=== PATIENT | male | born 1975 | race Hispanic/Latino ===

== ENCOUNTER 2022-08-08 14:05 | Inpatient (IN) | payer OTHER ==
[~2022-08-08] VITALS: Ht 162.6 cm; Wt 49.4 kg
[2022-08-08] VITALS (7 sets, daily range): BP systolic 126–167; BP diastolic 74–92
[2022-08-08] MEDS ORDERED: LIDOCAINE HCL 1% 20 ML VIAL ONE (14:13)
[2022-08-08] MEDS ORDERED: MIDAZOLAM HCL 1 MG/ML 2ML VIAL ONE (14:14)
[2022-08-08] MEDS ORDERED: NITROGLYCERIN 50MG VIAL ONE (14:14)
[2022-08-08] MEDS ORDERED: IOHEXOL 350 MG/ML 100ML INFUS..BTL IV ONE (14:14)
[2022-08-08] MEDS ORDERED: FENTANYL CITRATE PF 50 MCG/1 ML 2ML VIAL ONE (14:14)
[2022-08-08] MEDS ORDERED: VERAPAMIL HCL 2.5 MG/ML VIAL ONE (14:17)
[2022-08-08] MEDS ORDERED: HEPARIN 10,000 UNIT/10ML (1,000 UNIT/ML) VIAL ONE (14:19)
[2022-08-08] MEDS ORDERED: DEXTROSE 50%-WATER 50 ML DISP.SYRIN IV PRN (16:00)
[2022-08-08] MEDS ORDERED: GLUCAGON 1MG KIT 1 MG ML IM PRN (16:00)
[2022-08-08] MEDS ORDERED: ZOLPIDEM TARTRATE 5 MG TAB PO PRN (16:30)
[2022-08-08] MEDS ORDERED: DiphenhydrAMINE HCL 50 MG/ML VIAL IV PRN (16:30)
[2022-08-08] MEDS ORDERED: NITROGLYCERIN 0.4 MG SL TAB SL PRN (16:30)
[2022-08-08] MEDS ORDERED: LACTULOSE 20 GM/30 ML UDCUP PO PRN (16:30)
[2022-08-08] MEDS ORDERED: ACETAMINOPHEN 325 MG TAB PO PRN ×2 (16:30)
[2022-08-08] MEDS ORDERED: HEPARIN 5,000 UNIT VIAL SQ SCH (21:00)
[2022-08-08] MEDS ORDERED: HEPARIN 5,000 UNIT VIAL ONE (22:49)
[2022-08-08] MEDS: ACETAMINOPHEN WITH CODEINE 1 TAB TAB PO PRN (23:53)
[2022-08-09] VITALS (21 sets, daily range): BP systolic 132–181; BP diastolic 64–89
[2022-08-09] MEDS ORDERED: MORPHINE 2 MG SYG IVP PRN
[2022-08-09 05:42] LABS: BASOPHILS % (AUTO) 0.6 % (0.0-5.0); EOSINOPHILS % (AUTO) 3.6 % (0.0-8.0); HEMATOCRIT 23.9 % (42-54); LYMPHOCYTES % (AUTO) 28.7 % (21.0-51.0); MEAN CORPUSCULAR HEMOGLOBIN 28.2 pg (27.0-33.0); MEAN CORPUSCULAR HGB CONC 33.5 g/dL (32.0-36.0); MEAN CORPUSCULAR VOLUME 84.2 fL (79-99); MONOCYTES % (AUTO) 10.2 % (3.0-13.0); NEUTROPHILS % (AUTO) 56.7 % (40.0-77.0); PLATELET COUNT (AUTO) 213 K/uL (130-400); RED BLOOD CELL COUNT(AUTO) 2.84 MIL/uL (4.50-6.20); RED CELL DISTRIBUTION WIDTH 13.7 % (11.0-15.5); WHITE BLOOD COUNT (AUTO) 6.2 K/uL (4.8-10.8)
[2022-08-09 05:48] LABS: CREATININE 5.7 mg/dL (0.5-1.5); POTASSIUM 3.8 mmol/L (3.5-5.1); TOTAL PROTEIN, SERUM 6.1 g/dL (6.0-8.3)
[2022-08-09] MEDS: FAMOTIDINE 20MG VIAL IV SCH ×3 (09:36→21:00)
[2022-08-09] MEDS: ACETAMINOPHEN WITH CODEINE 1 TAB TAB PO PRN ×2 (09:46→16:28)
[2022-08-09] MEDS ORDERED: EPOETIN ALFA-EPBX (NON-ESRD) 10,000 UNIT/ML VIAL SQ SCH (14:00)
[2022-08-09] MEDS ORDERED: 0.9%NACL 1000ML 1,000 ML IV ONE (16:10)
[2022-08-09] MEDS: HEPARIN 25,000 UNITS/250ML D5W 250 ML IV SCH (16:22)
[2022-08-09] MEDS: HEPARIN 5,000 UNIT VIAL IJ SCH (20:05)
[2022-08-09] MEDS: ONDANSETRON 4MG INJ IV PRN (23:26)
[2022-08-10 00:12] VITALS: BP 174/81
[2022-08-10 02:53] LABS: HEPATITIS B SURFACE ANTIGEN Non-Reactive (Nonreactive)
[2022-08-10 03:53] LABS: BASOPHILS % (AUTO) 0.5 % (0.0-5.0); HEMATOCRIT 25.9 % (42-54); LYMPHOCYTES % (AUTO) 20.6 % (21.0-51.0); MEAN CORPUSCULAR HEMOGLOBIN 28.3 pg (27.0-33.0); MEAN CORPUSCULAR VOLUME 83.3 fL (79-99); MONOCYTES % (AUTO) 6.4 % (3.0-13.0); NEUTROPHILS % (AUTO) 71.2 % (40.0-77.0); PLATELET COUNT (AUTO) 223 K/uL (130-400); RED BLOOD CELL COUNT(AUTO) 3.11 MIL/uL (4.50-6.20); RED CELL DISTRIBUTION WIDTH 13.4 % (11.0-15.5)
[2022-08-10 04:00] VITALS: BP 148/66
[2022-08-10 04:16] LABS: ABG BASE EXCESS 0.8 mmol/L (-2.0-3.0); ABG HCO3 25.4 mmol/L (21.0-28.0); ABG OXYGEN SATURATION 96.6 % (95.0-99.0); ABG PCO2 40 mmHg (35-48)
[2022-08-10 04:17] LABS: CREATININE 4.4 mg/dL (0.5-1.5); PHOSPHORUS 4.8 mg/dL (2.5-4.9)
[2022-08-10] MEDS ORDERED: ASPIRIN 81 MG EC TAB PO SCH (08:00)
[2022-08-10] MEDS: FAMOTIDINE 20MG VIAL IV SCH ×2 (08:18→21:19)
[2022-08-10] MEDS: ACETAMINOPHEN WITH CODEINE 1 TAB TAB PO PRN (08:18)
[2022-08-10 08:23] LABS: CHOLESTEROL 185 mg/dL (<200); HDL CHOLESTEROL 56 mg/dL (29-71); LDL DIRECT 107 mg/dL (0-99); TRIGLYCERIDES 117 mg/dL (30-200)
[2022-08-10 08:41] VITALS: BP 138/74
[2022-08-10] MEDS ORDERED: METOPROLOL TARTRATE 25 MG TAB PO SCH (09:00)
[2022-08-10 12:30] VITALS: BP 150/81
[2022-08-10] MEDS: METOPROLOL TARTRATE 25 MG TAB PO SCH ×2 (15:31→21:19)
[2022-08-10] MEDS: ASPIRIN 81 MG EC TAB PO SCH (15:31)
[2022-08-10 16:08] VITALS: BP 152/78
[2022-08-10 20:06] VITALS: BP 172/78
[2022-08-10] MEDS ORDERED: ATORVASTATIN 20 MG TABLET PO SCH (21:00)
[2022-08-10] MEDS: ONDANSETRON 4MG INJ IV PRN (21:19)
[2022-08-10] MEDS: ATORVASTATIN 40 MG TABLET PO SCH (21:19)
[2022-08-10] MEDS: HEPARIN 25,000 UNITS/250ML D5W 250 ML IV SCH (22:26)
[2022-08-11] VITALS (20 sets, daily range): BP systolic 120–156; BP diastolic 69–89
[2022-08-11 04:44] LABS: HEMATOCRIT 23.6 % (42-54); MEAN CORPUSCULAR HEMOGLOBIN 28.8 pg (27.0-33.0); MEAN CORPUSCULAR HGB CONC 35.2 g/dL (32.0-36.0); MEAN CORPUSCULAR VOLUME 81.9 fL (79-99); RED BLOOD CELL COUNT(AUTO) 2.88 MIL/uL (4.50-6.20); RED CELL DISTRIBUTION WIDTH 13.2 % (11.0-15.5); WHITE BLOOD COUNT (AUTO) 5.4 K/uL (4.8-10.8)
[2022-08-11 05:20] LABS: CREATININE 7.2 mg/dL (0.5-1.5); POTASSIUM 3.9 mmol/L (3.5-5.1)
[2022-08-11] MEDS: METOPROLOL TARTRATE 25 MG TAB PO SCH ×2 (09:00→20:31)
[2022-08-11] MEDS: FAMOTIDINE 20MG VIAL IV SCH ×2 (10:09→20:31)
[2022-08-11] MEDS: ASPIRIN 81 MG EC TAB PO SCH (10:09)
[2022-08-11] MEDS: HEPARIN 5,000 UNIT VIAL IJ SCH (13:10)
[2022-08-11] MEDS: ACETAMINOPHEN WITH CODEINE 1 TAB TAB PO PRN ×2 (13:44→20:30)
[2022-08-11 17:02] LABS: INR 0.95 (0.85-1.15); PROTHROMBIN TIME 10.4 SEC (9.6-11.6)
[2022-08-11 17:04] LABS: PARTIAL THROMBOPLASTIN TIME 64.9 SEC (26.3-35.5)
[2022-08-11] MEDS: ATORVASTATIN 40 MG TABLET PO SCH (20:31)
[2022-08-11] MEDS: HEPARIN 25,000 UNITS/250ML D5W 250 ML IV SCH (22:12)
[2022-08-12] VITALS (7 sets, daily range): BP systolic 89–128; BP diastolic 57–78
[2022-08-12 03:26] LABS: HEMATOCRIT 26.2 % (42-54); MEAN CORPUSCULAR HEMOGLOBIN 28.1 pg (27.0-33.0); MEAN CORPUSCULAR VOLUME 82.6 fL (79-99); RED BLOOD CELL COUNT(AUTO) 3.17 MIL/uL (4.50-6.20); RED CELL DISTRIBUTION WIDTH 13.6 % (11.0-15.5); WHITE BLOOD COUNT (AUTO) 5.8 K/uL (4.8-10.8)
[2022-08-12 03:38] LABS: CREATININE 6.3 mg/dL (0.5-1.5); POTASSIUM 3.9 mmol/L (3.5-5.1)
[2022-08-12] MEDS: ONDANSETRON 4MG INJ IV PRN ×2 (04:38→20:14)
[2022-08-12] MEDS: METOPROLOL TARTRATE 25 MG TAB PO SCH ×3 (09:00→20:18)
[2022-08-12] MEDS: ASPIRIN 81 MG EC TAB PO SCH (09:53)
[2022-08-12] MEDS: FAMOTIDINE 20MG VIAL IV SCH ×2 (09:53→20:19)
[2022-08-12] MEDS: METOCLOPRAMIDE 5 MG TABLET PO SCH ×3 (11:30→20:18)
[2022-08-12] MEDS ORDERED: METOCLOPRAMIDE 5 MG TABLET ONE (11:36)
[2022-08-12] MEDS ORDERED: EPOETIN ALFA-EPBX (NON-ESRD) 10,000 UNIT/ML VIAL SQ SCH (14:00)
[2022-08-12] MEDS: ACETAMINOPHEN WITH CODEINE 1 TAB TAB PO PRN (20:17)
[2022-08-12] MEDS: ATORVASTATIN 40 MG TABLET PO SCH (20:17)
[2022-08-12] MEDS: HEPARIN 25,000 UNITS/250ML D5W 250 ML IV SCH (20:27)
[2022-08-12] MEDS ORDERED: HEPARIN 5,000 UNIT VIAL IV ONE (23:45)
[2022-08-13] MEDS: HEPARIN 25,000 UNITS/250ML D5W 250 ML IV SCH ×2 (00:23→21:17)
[2022-08-13 04:20] VITALS: BP 118/64
[2022-08-13 04:55] LABS: BASOPHILS % (AUTO) 0.5 % (0.0-5.0); EOSINOPHILS % (AUTO) 3.8 % (0.0-8.0); HEMATOCRIT 25.3 % (42-54); LYMPHOCYTES % (AUTO) 38.2 % (21.0-51.0); MEAN CORPUSCULAR HEMOGLOBIN 28.8 pg (27.0-33.0); MEAN CORPUSCULAR HGB CONC 34.8 g/dL (32.0-36.0); MEAN CORPUSCULAR VOLUME 82.7 fL (79-99); MONOCYTES % (AUTO) 11.5 % (3.0-13.0); NEUTROPHILS % (AUTO) 45.8 % (40.0-77.0); PLATELET COUNT (AUTO) 188 K/uL (130-400); RED BLOOD CELL COUNT(AUTO) 3.06 MIL/uL (4.50-6.20); RED CELL DISTRIBUTION WIDTH 13.6 % (11.0-15.5); WHITE BLOOD COUNT (AUTO) 5.8 K/uL (4.8-10.8)
[2022-08-13 05:14] LABS: ALBUMIN 3.3 g/dL (3.5-5.0); MAGNESIUM 2.2 mg/dL (1.80-2.40); POTASSIUM 3.9 mmol/L (3.5-5.1); TOTAL PROTEIN, SERUM 6.7 g/dL (6.0-8.3)
[2022-08-13 05:29] LABS: CREATININE 8.7 mg/dL (0.5-1.5)
[2022-08-13 07:08] VITALS: BP 132/78
[2022-08-13] MEDS: METOCLOPRAMIDE 5 MG TABLET PO SCH ×4 (07:18→21:10)
[2022-08-13] MEDS: FAMOTIDINE 20MG VIAL IV SCH ×2 (09:00→21:10)
[2022-08-13] MEDS: ASPIRIN 81 MG EC TAB PO SCH (09:00)
[2022-08-13] MEDS: METOPROLOL TARTRATE 25 MG TAB PO SCH ×2 (09:01→21:10)
[2022-08-13] MEDS: ONDANSETRON 4MG INJ IV PRN ×2 (09:47→19:03)
[2022-08-13 11:45] VITALS: BP 139/81
[2022-08-13 16:11] VITALS: BP 142/78
[2022-08-13] MEDS: ACETAMINOPHEN WITH CODEINE 1 TAB TAB PO PRN (16:26)
[2022-08-13 19:03] VITALS: BP 146/80
[2022-08-13 20:11] LABS: AMPHET/METH SCREEN,URINE NEGATIVE (NEGATIVE); BARBITURATE SCREEN, URINE NEGATIVE (NEGATIVE); BENZODIAZEPINES SCREEN,URINE NEGATIVE (NEGATIVE); CANNABINOID SCREEN,URINE NEGATIVE (NEGATIVE); COCAINE SCREEN,URINE NEGATIVE (NEGATIVE); OPIATE SCREEN,URINE POSITIVE (NEGATIVE); PHENCYCLIDINE SCREEN,URINE NEGATIVE (NEGATIVE)
[2022-08-13] MEDS: ATORVASTATIN 40 MG TABLET PO SCH (21:10)
[2022-08-14] VITALS (29 sets, daily range): BP systolic 32–202; BP diastolic 40–98
[2022-08-14] MEDS: METOCLOPRAMIDE 5 MG TABLET PO SCH ×2 (05:00→10:34)
[2022-08-14 05:21] LABS: MEAN CORPUSCULAR HEMOGLOBIN 28.5 pg (27.0-33.0); MEAN CORPUSCULAR HGB CONC 34.4 g/dL (32.0-36.0); MEAN CORPUSCULAR VOLUME 82.8 fL (79-99); RED BLOOD CELL COUNT(AUTO) 3.02 MIL/uL (4.50-6.20); RED CELL DISTRIBUTION WIDTH 13.7 % (11.0-15.5); WHITE BLOOD COUNT (AUTO) 6.8 K/uL (4.8-10.8)
[2022-08-14 05:34] LABS: HEMOGLOBIN A1C 7.3 % (4.0-6.0)
[2022-08-14 05:36] LABS: ALBUMIN 3.4 g/dL (3.5-5.0); INR 0.96 (0.85-1.15); POTASSIUM 4.2 mmol/L (3.5-5.1); PROTHROMBIN TIME 10.5 SEC (9.6-11.6); TOTAL PROTEIN, SERUM 6.9 g/dL (6.0-8.3)
[2022-08-14 05:38] LABS: PARTIAL THROMBOPLASTIN TIME 48.9 SEC (26.3-35.5)
[2022-08-14 05:47] LABS: CREATININE 9.8 mg/dL (0.5-1.5)
[2022-08-14] MEDS ORDERED: PAPAVERINE HCL 30 MG/ML 2ML VIAL ONE (07:02)
[2022-08-14] MEDS ORDERED: CEFAZOLIN SODIUM 1 GM VIAL ONE (07:02)
[2022-08-14] MEDS ORDERED: AMINOCAPROIC ACID 5,000MG VIAL 15,000 MG in 0.9% NACL 500ML IV.SOLN 420 ML IV PRN (08:00)
[2022-08-14] MEDS ORDERED: NOREPINEPHRINE BITARTRATE 8 MG in 0.9% NACL 250ML 250 ML IV PRN (08:00)
[2022-08-14] MEDS ORDERED: EPINEPHRINE PF 1MG (1:1,000) 10 MG in 0.9% NACL 250ML 240 ML IV PRN ×2 (08:00→15:30)
[2022-08-14] MEDS: ASPIRIN 81 MG EC TAB PO SCH (09:00)
[2022-08-14] MEDS ORDERED: EPOETIN ALFA-EPBX (NON-ESRD) 10,000 UNIT/ML VIAL SQ SCH (09:00)
[2022-08-14] MEDS: FAMOTIDINE 20MG VIAL IV SCH ×2 (09:00→20:40)
[2022-08-14] MEDS: METOPROLOL TARTRATE 25 MG TAB PO SCH (09:54)
[2022-08-14] MEDS: CEFAZOLIN SODIUM 1 GM VIAL IVP SCH ×2 (10:34→13:00)
[2022-08-14] MEDS ORDERED: 0.9% NACL 500ML IV.SOLN 0 ML IV ONE (10:37)
[2022-08-14] MEDS ORDERED: NITROGLYCERIN 50MG/D5W 250ML 1 BOT ONE (10:39)
[2022-08-14] MEDS ORDERED: 0.9%NACL 1000ML 1,000 ML IV ONE (10:40)
[2022-08-14] MEDS ORDERED: ROCURONIUM 10MG/1ML SYR 10 MG/ML ML ONE ×2 (12:09→13:20)
[2022-08-14] MEDS ORDERED: PROPOFOL 10 MG/ML 20ML VIAL IV ONE (12:09)
[2022-08-14] MEDS ORDERED: MIDAZOLAM HCL 1 MG/ML 5ML VIAL ONE (12:13)
[2022-08-14] MEDS ORDERED: FENTANYL CITRATE PF 50 MCG/1 ML 20ML VIAL IJ ONE (12:16)
[2022-08-14] MEDS ORDERED: HEPARIN 10,000 UNIT/10ML (1,000 UNIT/ML) VIAL ONE (13:27)
[2022-08-14 13:51] LABS: ABG BASE EXCESS -5.4 mmol/L (-2.0-3.0); ABG HCO3 19.3 mmol/L (21.0-28.0); ABG OXYGEN SATURATION 99.4 % (95.0-99.0); ABG PCO2 35 mmHg (35-48)
[2022-08-14] MEDS ORDERED: AMIODARONE 150MG VIAL ONE (13:51)
[2022-08-14 14:24] LABS: ABG BASE EXCESS 3.3 mmol/L (-2.0-3.0); ABG HCO3 25.8 mmol/L (21.0-28.0); ABG OXYGEN SATURATION 99.3 % (95.0-99.0); ABG PCO2 31 mmHg (35-48)
[2022-08-14 14:54] LABS: ABG BASE EXCESS 7.4 mmol/L (-2.0-3.0); ABG HCO3 29.9 mmol/L (21.0-28.0); ABG OXYGEN SATURATION 99.3 % (95.0-99.0); ABG PCO2 33 mmHg (35-48)
[2022-08-14] MEDS ORDERED: 0.9%NACL 10ML VIAL IVP PRN (15:30)
[2022-08-14] MEDS ORDERED: POTASSIUM PHOS 15 mMOL+NS250ML 250 ML IV PRN (15:30)
[2022-08-14] MEDS ORDERED: AMINOCAPROIC ACID 5,000MG VIAL 15,000 MG in 0.9% NACL 250ML 250 ML IV SCH (15:30)
[2022-08-14] MEDS ORDERED: MORPHINE 4 MG SYG IV PRN (15:30)
[2022-08-14] MEDS ORDERED: NOREPINEPHRIN 4MG/NS 250ML 250 ML IV PRN (15:30)
[2022-08-14] MEDS ORDERED: CALCIUM GLUC 1GM 1 GM in 0.9%NACL 50ML 50 ML IV PRN (15:30)
[2022-08-14] MEDS ORDERED: PROPOFOL 1000 MG/100 ML 100 ML IV PRN (15:30)
[2022-08-14] MEDS ORDERED: MORPHINE 2 MG SYG IV PRN (15:30)
[2022-08-14] MEDS ORDERED: 0.9%NACL 1000ML 1,000 ML IV SCH (15:30)
[2022-08-14] MEDS ORDERED: DEXTROSE 50%-WATER 50 ML DISP.SYRIN IV PRN (15:30)
[2022-08-14] MEDS ORDERED: INSULIN REGULAR, HUMAN 3ML 100 UNIT in 0.9%NACL 100ML 99 ML IV SCH ×2 (15:30)
[2022-08-14] MEDS ORDERED: ALBUMIN (HUMAN) 5% 250 ML IV PRN (15:30)
[2022-08-14] MEDS ORDERED: 0.9% NACL 500ML IV.SOLN 500 ML IV SCH (15:30)
[2022-08-14] MEDS ORDERED: HYDROCODONE/ACETAMINOPHEN 5/325 MG TAB PO PRN (15:30)
[2022-08-14] MEDS ORDERED: POTASSIUM CHLORIDE 20MEQ/100ML 100 ML IV PRN (15:30)
[2022-08-14] MEDS ORDERED: ACETAMINOPHEN 650 MG SUPPOSITORY RC PRN (15:30)
[2022-08-14] MEDS ORDERED: GLUCAGON 1MG KIT 1 MG ML IM PRN (15:30)
[2022-08-14] MEDS ORDERED: NITROGLYCERIN 50MG/D5W 250ML 250 BOT IV SCH (15:30)
[2022-08-14 15:45] LABS: ABG BASE EXCESS 0.8 mmol/L (-2.0-3.0); ABG HCO3 23.6 mmol/L (21.0-28.0); ABG OXYGEN SATURATION 99.2 % (95.0-99.0); ABG PCO2 29 mmHg (35-48)
[2022-08-14 16:18] LABS: ABG BASE EXCESS -0.3 mmol/L (-2.0-3.0); ABG OXYGEN SATURATION 98.7 % (95.0-99.0); ABG PCO2 31 mmHg (35-48)
[2022-08-14 16:22] LABS: MEAN CORPUSCULAR HEMOGLOBIN 28.6 pg (27.0-33.0); MEAN CORPUSCULAR HGB CONC 34.5 g/dL (32.0-36.0); MEAN CORPUSCULAR VOLUME 82.9 fL (79-99); RED BLOOD CELL COUNT(AUTO) 2.1 MIL/uL (4.50-6.20); RED CELL DISTRIBUTION WIDTH 13.6 % (11.0-15.5); WHITE BLOOD COUNT (AUTO) 13.1 K/uL (4.8-10.8)
[2022-08-14] MEDS: SODIUM BICARB 50MEQ 50ML VIAL IV PRN ×3 (16:35→19:31)
[2022-08-14 16:37] LABS: INR 1.14 (0.85-1.15); PROTHROMBIN TIME 12.3 SEC (9.6-11.6)
[2022-08-14 16:38] LABS: PARTIAL THROMBOPLASTIN TIME 21.9 SEC (26.3-35.5)
[2022-08-14 16:48] LABS: HEMATOCRIT 17.4 % (42-54)
[2022-08-14 16:49] LABS: MAGNESIUM 1.6 mg/dL (1.80-2.40); PHOSPHORUS 6.5 mg/dL (2.5-4.9); POTASSIUM 3.9 mmol/L (3.5-5.1)
[2022-08-14 16:53] LABS: CREATININE 8.4 mg/dL (0.5-1.5)
[2022-08-14] MEDS ORDERED: ASPIRIN 81MG CHEW TAB NG ONE (17:00)
[2022-08-14] MEDS: MAGNESIUM 2GM PREMIX 50ML 50 ML IV PRN (17:06)
[2022-08-14 17:14] LABS: ABG BASE EXCESS 1.5 mmol/L (-2.0-3.0); ABG HCO3 24.9 mmol/L (21.0-28.0); ABG OXYGEN SATURATION 98.7 % (95.0-99.0); ABG PCO2 34 mmHg (35-48)
[2022-08-14 18:30] LABS: ABG BASE EXCESS -1.8 mmol/L (-2.0-3.0); ABG HCO3 21.9 mmol/L (21.0-28.0); ABG OXYGEN SATURATION 98.5 % (95.0-99.0); ABG PCO2 33 mmHg (35-48)
[2022-08-14 19:26] LABS: ABG BASE EXCESS -0.7 mmol/L (-2.0-3.0); ABG HCO3 23.7 mmol/L (21.0-28.0); ABG OXYGEN SATURATION 98.6 % (95.0-99.0); ABG PCO2 38 mmHg (35-48)
[2022-08-14] MEDS ORDERED: TRAMADOL HCL 50 MG TABLET PO PRN (19:45)
[2022-08-14 20:33] LABS: ABG BASE EXCESS 0.6 mmol/L (-2.0-3.0); ABG HCO3 26.1 mmol/L (21.0-28.0); ABG OXYGEN SATURATION 98.4 % (95.0-99.0); ABG PCO2 47 mmHg (35-48)
[2022-08-14] MEDS: CEFAZOLIN SODIUM 1 GM VIAL IV SCH (20:40)
[2022-08-14 21:28] LABS: ABG BASE EXCESS 2.3 mmol/L (-2.0-3.0); ABG HCO3 26.2 mmol/L (21.0-28.0); ABG OXYGEN SATURATION 98.6 % (95.0-99.0); ABG PCO2 37 mmHg (35-48)
[2022-08-14 23:09] LABS: ABG BASE EXCESS 2.6 mmol/L (-2.0-3.0); ABG HCO3 27.4 mmol/L (21.0-28.0); ABG OXYGEN SATURATION 98.4 % (95.0-99.0); ABG PCO2 43 mmHg (35-48)
[2022-08-15] VITALS (69 sets, daily range): BP systolic 65–219; BP diastolic 29–73
[2022-08-15 00:25] LABS: ABG HCO3 25.6 mmol/L (21.0-28.0); ABG OXYGEN SATURATION 98.3 % (95.0-99.0); ABG PCO2 41 mmHg (35-48)
[2022-08-15 01:26] LABS: ABG BASE EXCESS 0.6 mmol/L (-2.0-3.0); ABG HCO3 24.5 mmol/L (21.0-28.0); ABG OXYGEN SATURATION 98.5 % (95.0-99.0); ABG PCO2 36 mmHg (35-48)
[2022-08-15 02:33] LABS: ABG BASE EXCESS 1.5 mmol/L (-2.0-3.0); ABG HCO3 26.2 mmol/L (21.0-28.0); ABG OXYGEN SATURATION 98.3 % (95.0-99.0); ABG PCO2 42 mmHg (35-48)
[2022-08-15 04:18] LABS: MEAN CORPUSCULAR HEMOGLOBIN 29.8 pg (27.0-33.0); MEAN CORPUSCULAR HGB CONC 34.8 g/dL (32.0-36.0); MEAN CORPUSCULAR VOLUME 85.8 fL (79-99); RED BLOOD CELL COUNT(AUTO) 2.18 MIL/uL (4.50-6.20); RED CELL DISTRIBUTION WIDTH 14.2 % (11.0-15.5); WHITE BLOOD COUNT (AUTO) 8.4 K/uL (4.8-10.8)
[2022-08-15 04:33] LABS: HEMATOCRIT 18.7 % (42-54)
[2022-08-15 04:37] LABS: MAGNESIUM 2.8 mg/dL (1.80-2.40); PHOSPHORUS 6.2 mg/dL (2.5-4.9); POTASSIUM 4.7 mmol/L (3.5-5.1)
[2022-08-15 04:43] LABS: ABG BASE EXCESS 0.2 mmol/L (-2.0-3.0); ABG HCO3 24.4 mmol/L (21.0-28.0); ABG OXYGEN SATURATION 97.8 % (95.0-99.0); ABG PCO2 37 mmHg (35-48)
[2022-08-15] MEDS: CEFAZOLIN SODIUM 1 GM VIAL IV SCH ×2 (04:48→12:18)
[2022-08-15 04:54] LABS: CREATININE 9.4 mg/dL (0.5-1.5)
[2022-08-15 04:56] LABS: INR 1.03 (0.85-1.15); PROTHROMBIN TIME 11.2 SEC (9.6-11.6)
[2022-08-15 04:57] LABS: PARTIAL THROMBOPLASTIN TIME 24.5 SEC (26.3-35.5)
[2022-08-15 05:54] LABS: MEAN CORPUSCULAR HEMOGLOBIN 29.5 pg (27.0-33.0); MEAN CORPUSCULAR HGB CONC 33.7 g/dL (32.0-36.0); MEAN CORPUSCULAR VOLUME 87.4 fL (79-99); RED BLOOD CELL COUNT(AUTO) 2.07 MIL/uL (4.50-6.20); RED CELL DISTRIBUTION WIDTH 14.3 % (11.0-15.5); WHITE BLOOD COUNT (AUTO) 8.5 K/uL (4.8-10.8)
[2022-08-15 05:58] LABS: HEMATOCRIT 18.1 % (42-54)
[2022-08-15] MEDS ORDERED: TRAMADOL HCL 50 MG TABLET ONE (07:44)
[2022-08-15] MEDS: FAMOTIDINE 20MG VIAL IV SCH ×2 (08:00→20:05)
[2022-08-15] MEDS: ASPIRIN 81MG CHEW TAB PO SCH (08:00)
[2022-08-15] MEDS ORDERED: EPOETIN ALFA-EPBX (NON-ESRD) 10,000 UNIT/ML VIAL SQ SCH (09:30)
[2022-08-15] MEDS: HYDROCODONE/ACETAMINOPHEN 7.5/325 MG TAB PO PRN ×2 (13:18→20:25)
[2022-08-15] MEDS: HEPARIN 5,000 UNIT VIAL IJ SCH (13:21)
[2022-08-15] MEDS: LISINOPRIL 10 MG TABLET PO SCH (15:21)
[2022-08-15 16:15] LABS: HEMATOCRIT 22.2 % (42-54); MEAN CORPUSCULAR HEMOGLOBIN 30.4 pg (27.0-33.0); MEAN CORPUSCULAR HGB CONC 35.1 g/dL (32.0-36.0); MEAN CORPUSCULAR VOLUME 86.4 fL (79-99); RED BLOOD CELL COUNT(AUTO) 2.57 MIL/uL (4.50-6.20); RED CELL DISTRIBUTION WIDTH 13.8 % (11.0-15.5); WHITE BLOOD COUNT (AUTO) 13.2 K/uL (4.8-10.8)
[2022-08-15] MEDS: ATORVASTATIN 40 MG TABLET PO SCH (20:05)
[2022-08-15] MEDS: METOPROLOL TARTRATE 25 MG TAB PO SCH (20:05)
[2022-08-15] MEDS ORDERED: HYDRALAZINE 20MG/ML VIAL IM SCH (21:30)
[2022-08-16] VITALS (33 sets, daily range): BP systolic 136–188; BP diastolic 56–87
[2022-08-16] MEDS: ACETAMINOPHEN 325 MG TAB PO PRN ×2 (01:03→10:05)
[2022-08-16 04:17] LABS: BASOPHILS % (AUTO) 0.2 % (0.0-5.0); HEMATOCRIT 22.6 % (42-54); LYMPHOCYTES % (AUTO) 4.4 % (21.0-51.0); MEAN CORPUSCULAR HEMOGLOBIN 29.5 pg (27.0-33.0); MEAN CORPUSCULAR HGB CONC 33.6 g/dL (32.0-36.0); MEAN CORPUSCULAR VOLUME 87.6 fL (79-99); MONOCYTES % (AUTO) 7.1 % (3.0-13.0); NEUTROPHILS % (AUTO) 87.8 % (40.0-77.0); PLATELET COUNT (AUTO) 139 K/uL (130-400); RED BLOOD CELL COUNT(AUTO) 2.58 MIL/uL (4.50-6.20); RED CELL DISTRIBUTION WIDTH 14.2 % (11.0-15.5); WHITE BLOOD COUNT (AUTO) 14.6 K/uL (4.8-10.8)
[2022-08-16 04:39] LABS: CREATININE 6.4 mg/dL (0.5-1.5); MAGNESIUM 2.2 mg/dL (1.80-2.40); PHOSPHORUS 6.7 mg/dL (2.5-4.9)
[2022-08-16] MEDS: ASPIRIN 81MG CHEW TAB PO SCH (08:53)
[2022-08-16] MEDS: FAMOTIDINE 20MG VIAL IV SCH ×2 (08:53→20:12)
[2022-08-16] MEDS: LISINOPRIL 10 MG TABLET PO SCH (08:53)
[2022-08-16] MEDS: METOPROLOL TARTRATE 25 MG TAB PO SCH ×2 (08:53→20:12)
[2022-08-16] MEDS: ENOXAPARIN SODIUM 30 MG/0.3 ML SQ SCH (08:54)
[2022-08-16] MEDS ORDERED: LOSARTAN 25 MG TABLET PO SCH (09:00)
[2022-08-16] MEDS: INSULIN HUMULIN R 100 UNIT/ML 3ML SQ SCH ×3 (11:18→19:54)
[2022-08-16] MEDS: HEPARIN 5,000 UNIT VIAL IV PRN (12:38)
[2022-08-16] MEDS ORDERED: TRAMADOL HCL 50 MG TABLET PO PRN ×2 (15:30)
[2022-08-16] MEDS: ATORVASTATIN 40 MG TABLET PO SCH (20:12)
[2022-08-17] VITALS: BP 144/73
[2022-08-17 03:51] LABS: MEAN CORPUSCULAR HEMOGLOBIN 30.2 pg (27.0-33.0); MEAN CORPUSCULAR HGB CONC 34.6 g/dL (32.0-36.0); MEAN CORPUSCULAR VOLUME 87.2 fL (79-99); RED BLOOD CELL COUNT(AUTO) 2.35 MIL/uL (4.50-6.20); WHITE BLOOD COUNT (AUTO) 12.8 K/uL (4.8-10.8)
[2022-08-17 03:53] LABS: HEMATOCRIT 20.5 % (42-54)
[2022-08-17 04:00] VITALS: BP 166/72
[2022-08-17 04:01] LABS: CREATININE 4.8 mg/dL (0.5-1.5)
[2022-08-17] MEDS: ACETAMINOPHEN 325 MG TAB PO PRN (06:12)
[2022-08-17] MEDS: INSULIN HUMULIN R 100 UNIT/ML 3ML SQ SCH ×4 (07:30→21:32)
[2022-08-17 08:30] VITALS: BP 151/76
[2022-08-17] MEDS: ASPIRIN 81MG CHEW TAB PO SCH (09:18)
[2022-08-17] MEDS: FAMOTIDINE 20MG VIAL IV SCH ×2 (09:18→20:04)
[2022-08-17] MEDS: METOPROLOL TARTRATE 25 MG TAB PO SCH ×2 (09:18→20:04)
[2022-08-17] MEDS: LOSARTAN 100 MG TABLET PO SCH (09:18)
[2022-08-17] MEDS: ENOXAPARIN SODIUM 30 MG/0.3 ML SQ SCH (09:19)
[2022-08-17 12:24] VITALS: BP 125/66
[2022-08-17 16:15] VITALS: BP 134/68
[2022-08-17 19:06] VITALS: BP 133/60
[2022-08-17] MEDS: ATORVASTATIN 40 MG TABLET PO SCH (20:04)
[2022-08-18] VITALS (19 sets, daily range): BP systolic 99–149; BP diastolic 55–84
[2022-08-18 04:37] LABS: HEMATOCRIT 21.3 % (42-54); MEAN CORPUSCULAR HEMOGLOBIN 29.6 pg (27.0-33.0); MEAN CORPUSCULAR HGB CONC 33.8 g/dL (32.0-36.0); MEAN CORPUSCULAR VOLUME 87.7 fL (79-99); RED BLOOD CELL COUNT(AUTO) 2.43 MIL/uL (4.50-6.20); RED CELL DISTRIBUTION WIDTH 13.8 % (11.0-15.5); WHITE BLOOD COUNT (AUTO) 9.8 K/uL (4.8-10.8)
[2022-08-18 05:00] LABS: ALBUMIN 2.6 g/dL (3.5-5.0); ASPARTATE AMINOTRANSFERASE 24 U/L (10-37); BILIRUBIN,DIRECT 0.1 mg/dL (0.0-0.3); CARBON DIOXIDE 29 mmol/L (21-32); CHLORIDE 96 mmol/L (101-111); CREATININE 5.9 mg/dL (0.5-1.5); GLOMERULAR FILTR. RATE CALC 11 mL/min (>60); GLUCOSE,RANDOM 108 mg/dL (70-105); POTASSIUM 3.4 mmol/L (3.5-5.1); SODIUM SERUM 134 mmol/L (136-145); TOTAL PROTEIN, SERUM 5.9 g/dL (6.0-8.3); UREA NITROGEN, BLOOD 47 mg/dL (7-18)
[2022-08-18 05:18] LABS: ALANINE AMINOTRANSFERASE < 6 U/L (12-78)
[2022-08-18] MEDS ORDERED: POTASSIUM CHLORIDE 10% ELIXIR 20 MEQ/15 ML UDCUP PO PRN (06:00)
[2022-08-18] MEDS: POTASSIUM CHLORIDE 10MEQ SR TAB PO PRN ×2 (06:14→14:33)
[2022-08-18] MEDS: INSULIN HUMULIN R 100 UNIT/ML 3ML SQ SCH ×4 (06:51→21:20)
[2022-08-18] MEDS: FAMOTIDINE 20MG VIAL IV SCH ×2 (08:57→20:02)
[2022-08-18] MEDS: LOSARTAN 100 MG TABLET PO SCH (08:57)
[2022-08-18] MEDS: METOPROLOL TARTRATE 25 MG TAB PO SCH ×2 (08:57→20:02)
[2022-08-18] MEDS: ASPIRIN 81MG CHEW TAB PO SCH (08:57)
[2022-08-18] MEDS: FUROSEMIDE 20 MG TABLET PO SCH (08:57)
[2022-08-18] MEDS: ENOXAPARIN SODIUM 30 MG/0.3 ML SQ SCH (09:00)
[2022-08-18 10:56] LABS: INR 1.03 (0.85-1.15); PROTHROMBIN TIME 11.2 SEC (9.6-11.6)
[2022-08-18 10:57] LABS: PARTIAL THROMBOPLASTIN TIME 34.1 SEC (26.3-35.5)
[2022-08-18] MEDS: ACETAMINOPHEN 325 MG TAB PO PRN (12:03)
[2022-08-18] MEDS: ONDANSETRON 4MG INJ IV PRN (12:03)
[2022-08-18] MEDS: HEPARIN 5,000 UNIT VIAL IV PRN (17:55)
[2022-08-18] MEDS ORDERED: EPOETIN ALFA-EPBX (NON-ESRD) 10,000 UNIT/ML VIAL SQ SCH (20:00)
[2022-08-18] MEDS: ATORVASTATIN 40 MG TABLET PO SCH (20:02)
[2022-08-19 00:06] VITALS: BP 157/77
[2022-08-19 03:06] VITALS: BP 121/67
[2022-08-19 04:13] LABS: HEMATOCRIT 23.2 % (42-54); MEAN CORPUSCULAR HEMOGLOBIN 30.7 pg (27.0-33.0); MEAN CORPUSCULAR HGB CONC 34.9 g/dL (32.0-36.0); MEAN CORPUSCULAR VOLUME 87.9 fL (79-99); RED BLOOD CELL COUNT(AUTO) 2.64 MIL/uL (4.50-6.20); RED CELL DISTRIBUTION WIDTH 13.7 % (11.0-15.5); WHITE BLOOD COUNT (AUTO) 8.9 K/uL (4.8-10.8)
[2022-08-19 04:23] LABS: CREATININE 4.3 mg/dL (0.5-1.5); POTASSIUM 3.9 mmol/L (3.5-5.1)
[2022-08-19] MEDS: INSULIN HUMULIN R 100 UNIT/ML 3ML SQ SCH ×4 (05:49→21:08)
[2022-08-19 07:00] VITALS: BP 115/63
[2022-08-19] MEDS: FAMOTIDINE 20MG VIAL IV SCH ×2 (09:19→20:45)
[2022-08-19] MEDS: METOPROLOL TARTRATE 25 MG TAB PO SCH ×2 (09:19→20:45)
[2022-08-19] MEDS: FUROSEMIDE 20 MG TABLET PO SCH (09:19)
[2022-08-19] MEDS: ASPIRIN 81MG CHEW TAB PO SCH (09:19)
[2022-08-19] MEDS: ENOXAPARIN SODIUM 30 MG/0.3 ML SQ SCH (09:19)
[2022-08-19] MEDS: LOSARTAN 100 MG TABLET PO SCH (09:19)
[2022-08-19 11:00] VITALS: BP 117/74
[2022-08-19] MEDS: ARTIFICAL TEARS SOL 15 ML OS SCH (15:22)
[2022-08-19 16:00] VITALS: BP 113/66
[2022-08-19 20:44] VITALS: BP 114/62
[2022-08-19] MEDS: ATORVASTATIN 40 MG TABLET PO SCH (20:45)
[2022-08-20] VITALS (8 sets, daily range): BP systolic 99–140; BP diastolic 56–78
[2022-08-20 03:40] LABS: MEAN CORPUSCULAR HEMOGLOBIN 29.5 pg (27.0-33.0); MEAN CORPUSCULAR VOLUME 86.7 fL (79-99); PLATELET COUNT (AUTO) 244 K/uL (130-400); RED BLOOD CELL COUNT(AUTO) 2.41 MIL/uL (4.50-6.20); RED CELL DISTRIBUTION WIDTH 13.6 % (11.0-15.5); WHITE BLOOD COUNT (AUTO) 8.7 K/uL (4.8-10.8)
[2022-08-20 03:51] LABS: CREATININE 5.8 mg/dL (0.5-1.5); MAGNESIUM 1.9 mg/dL (1.80-2.40); PHOSPHORUS 2.8 mg/dL (2.5-4.9); POTASSIUM 3.7 mmol/L (3.5-5.1)
[2022-08-20 03:57] LABS: HEMATOCRIT 20.9 % (42-54)
[2022-08-20 04:08] LABS: BAND NEUTROPHILS % (MANUAL) 5 % (0-2); LYMPHOCYTES % (MANUAL) 21 % (22-44); MAN.DIFF COMMENT-IMPRESSION MANUAL DIFFERENTIAL; MONOCYTES % (MANUAL) 10 % (2-9); PLATELET MORPHOLOGY COMMENT ADEQUATE; SEGMENTED NEUTROPHILS % 64 % (40-70)
[2022-08-20] MEDS: INSULIN HUMULIN R 100 UNIT/ML 3ML SQ SCH ×4 (05:21→21:00)
[2022-08-20] MEDS: LOSARTAN 100 MG TABLET PO SCH (09:35)
[2022-08-20] MEDS: METOPROLOL TARTRATE 25 MG TAB PO SCH ×2 (09:35→21:04)
[2022-08-20] MEDS: FUROSEMIDE 20 MG TABLET PO SCH (09:35)
[2022-08-20] MEDS: ASPIRIN 81MG CHEW TAB PO SCH (09:35)
[2022-08-20] MEDS: ARTIFICAL TEARS SOL 15 ML OS SCH ×2 (09:35→12:56)
[2022-08-20] MEDS: ENOXAPARIN SODIUM 30 MG/0.3 ML SQ SCH (09:35)
[2022-08-20] MEDS: FAMOTIDINE 20MG VIAL IV SCH ×2 (09:35→21:05)
[2022-08-20] MEDS: MAGNESIUM 2GM PREMIX 50ML 50 ML IV PRN (10:32)
[2022-08-20] MEDS ORDERED: EPOETIN ALFA-EPBX (NON-ESRD) 10,000 UNIT/ML VIAL SQ SCH (21:00)
[2022-08-20] MEDS: ATORVASTATIN 40 MG TABLET PO SCH (21:04)
[2022-08-21] VITALS (22 sets, daily range): BP systolic 94–140; BP diastolic 46–78
[2022-08-21] MEDS: ARTIFICAL TEARS SOL 15 ML OS SCH ×2 (01:49→13:22)
[2022-08-21 04:37] LABS: CREATININE 6.8 mg/dL (0.5-1.5); POTASSIUM 3.7 mmol/L (3.5-5.1)
[2022-08-21 04:57] LABS: MEAN CORPUSCULAR HEMOGLOBIN 29.7 pg (27.0-33.0); MEAN CORPUSCULAR HGB CONC 34.5 g/dL (32.0-36.0); RED BLOOD CELL COUNT(AUTO) 2.29 MIL/uL (4.50-6.20); RED CELL DISTRIBUTION WIDTH 13.7 % (11.0-15.5); WHITE BLOOD COUNT (AUTO) 9.1 K/uL (4.8-10.8)
[2022-08-21 05:06] LABS: HEMATOCRIT 19.7 % (42-54)
[2022-08-21] MEDS: INSULIN HUMULIN R 100 UNIT/ML 3ML SQ SCH ×4 (07:14→20:32)
[2022-08-21] MEDS: LOSARTAN 100 MG TABLET PO SCH (09:00)
[2022-08-21] MEDS: FUROSEMIDE 20 MG TABLET PO SCH (09:00)
[2022-08-21] MEDS: ONDANSETRON 4MG INJ IV PRN (09:40)
[2022-08-21] MEDS: FAMOTIDINE 20MG VIAL IV SCH ×2 (09:41→20:37)
[2022-08-21] MEDS: ACETAMINOPHEN 325 MG TAB PO PRN ×2 (09:41→20:44)
[2022-08-21] MEDS ORDERED: 0.9%NACL 1000ML 1,000 ML IV ONE (11:34)
[2022-08-21 11:43] LABS: HEMATOCRIT 20.2 % (42-54)
[2022-08-21] MEDS: ENOXAPARIN SODIUM 30 MG/0.3 ML SQ SCH (13:21)
[2022-08-21] MEDS: METOPROLOL TARTRATE 25 MG TAB PO SCH ×2 (13:21→20:37)
[2022-08-21] MEDS: ASPIRIN 81MG CHEW TAB PO SCH (13:21)
[2022-08-21] MEDS: ATORVASTATIN 40 MG TABLET PO SCH (20:37)
[2022-08-22] MEDS: ARTIFICAL TEARS SOL 15 ML OS SCH ×2 (02:00→13:54)
[2022-08-22 04:07] VITALS: BP 131/71
[2022-08-22 04:20] LABS: MEAN CORPUSCULAR HEMOGLOBIN 29.4 pg (27.0-33.0); MEAN CORPUSCULAR VOLUME 86.5 fL (79-99); RED BLOOD CELL COUNT(AUTO) 2.89 MIL/uL (4.50-6.20)
[2022-08-22 04:26] LABS: CREATININE 5.3 mg/dL (0.5-1.5); POTASSIUM 3.9 mmol/L (3.5-5.1)
[2022-08-22] MEDS: INSULIN HUMULIN R 100 UNIT/ML 3ML SQ SCH ×4 (06:22→20:34)
[2022-08-22 08:00] VITALS: BP 110/67
[2022-08-22] MEDS: METOPROLOL TARTRATE 25 MG TAB PO SCH ×2 (08:11→20:33)
[2022-08-22] MEDS: ASPIRIN 81MG CHEW TAB PO SCH (08:12)
[2022-08-22] MEDS: FUROSEMIDE 20 MG TABLET PO SCH (08:12)
[2022-08-22] MEDS: ENOXAPARIN SODIUM 30 MG/0.3 ML SQ SCH (08:12)
[2022-08-22] MEDS: FAMOTIDINE 20MG VIAL IV SCH ×2 (08:12→20:33)
[2022-08-22] MEDS: LOSARTAN 100 MG TABLET PO SCH (11:19)
[2022-08-22 11:32] VITALS: BP 112/68
[2022-08-22 16:00] VITALS: BP 121/68
[2022-08-22 20:00] VITALS: BP 144/75
[2022-08-22] MEDS: ATORVASTATIN 40 MG TABLET PO SCH (20:33)
[2022-08-23] VITALS (22 sets, daily range): BP systolic 94–147; BP diastolic 3–78
[2022-08-23] MEDS: ARTIFICAL TEARS SOL 15 ML OS SCH ×2 (02:43→13:32)
[2022-08-23 04:03] LABS: HEMATOCRIT 24.1 % (42-54); MEAN CORPUSCULAR HEMOGLOBIN 30.1 pg (27.0-33.0); MEAN CORPUSCULAR HGB CONC 34.9 g/dL (32.0-36.0); MEAN CORPUSCULAR VOLUME 86.4 fL (79-99); PLATELET COUNT (AUTO) 369 K/uL (130-400); RED BLOOD CELL COUNT(AUTO) 2.79 MIL/uL (4.50-6.20); RED CELL DISTRIBUTION WIDTH 13.9 % (11.0-15.5); WHITE BLOOD COUNT (AUTO) 9.3 K/uL (4.8-10.8)
[2022-08-23 04:04] LABS: BASOPHILS % (AUTO) 0.2 % (0.0-5.0); EOSINOPHILS % (AUTO) 1.2 % (0.0-8.0); LYMPHOCYTES % (AUTO) 8.6 % (21.0-51.0); MONOCYTES % (AUTO) 11.8 % (3.0-13.0); NEUTROPHILS % (AUTO) 77.7 % (40.0-77.0)
[2022-08-23 04:07] LABS: CREATININE 6.8 mg/dL (0.5-1.5); POTASSIUM 3.8 mmol/L (3.5-5.1)
[2022-08-23] MEDS: INSULIN HUMULIN R 100 UNIT/ML 3ML SQ SCH ×4 (06:36→21:56)
[2022-08-23] MEDS: LOSARTAN 100 MG TABLET PO SCH (09:00)
[2022-08-23] MEDS: POTASSIUM CHLORIDE 10MEQ SR TAB PO PRN ×2 (09:25→13:29)
[2022-08-23] MEDS: ASPIRIN 81MG CHEW TAB PO SCH (09:26)
[2022-08-23] MEDS: ACETAMINOPHEN 325 MG TAB PO PRN ×2 (09:26→20:03)
[2022-08-23] MEDS ORDERED: FURO20TA6 PO (09:54)
[2022-08-23] MEDS ORDERED: ATOR40TA69 PO (09:54)
[2022-08-23] MEDS ORDERED: METO25 PO (09:54)
[2022-08-23] MEDS ORDERED: LOSA100T2 PO (09:54)
[2022-08-23] MEDS: HEPARIN 5,000 UNIT VIAL IV PRN (13:13)
[2022-08-23] MEDS: FAMOTIDINE 20MG VIAL IV SCH ×2 (13:27→20:00)
[2022-08-23] MEDS: FUROSEMIDE 20 MG TABLET PO SCH (13:28)
[2022-08-23] MEDS: METOPROLOL TARTRATE 25 MG TAB PO SCH ×2 (13:29→20:01)
[2022-08-23] MEDS: ENOXAPARIN SODIUM 30 MG/0.3 ML SQ SCH (13:32)
[2022-08-23] MEDS: ATORVASTATIN 40 MG TABLET PO SCH (20:01)
[2022-08-24 00:06] VITALS: BP_SYST 111; BP_SYST 115; BP_DIAS 69; BP_DIAS 72
[2022-08-24] MEDS: ARTIFICAL TEARS SOL 15 ML OS SCH ×2 (02:45→14:48)
[2022-08-24 03:06] VITALS: BP 115/72
[2022-08-24] MEDS: INSULIN HUMULIN R 100 UNIT/ML 3ML SQ SCH ×4 (07:10→22:02)
[2022-08-24 08:30] VITALS: BP 111/65
[2022-08-24] MEDS: FAMOTIDINE 20MG VIAL IV SCH ×2 (09:51→22:01)
[2022-08-24] MEDS: ENOXAPARIN SODIUM 30 MG/0.3 ML SQ SCH (09:51)
[2022-08-24] MEDS: LOSARTAN 100 MG TABLET PO SCH (09:51)
[2022-08-24] MEDS: ASPIRIN 81MG CHEW TAB PO SCH (09:52)
[2022-08-24] MEDS: METOPROLOL TARTRATE 25 MG TAB PO SCH ×2 (09:52→22:01)
[2022-08-24] MEDS: FUROSEMIDE 20 MG TABLET PO SCH (09:52)
[2022-08-24 12:40] VITALS: BP 108/66
[2022-08-24 16:24] VITALS: BP 113/70
[2022-08-24 19:06] VITALS: BP 124/71
[2022-08-24] MEDS: ATORVASTATIN 40 MG TABLET PO SCH (22:01)
[2022-08-25] VITALS (19 sets, daily range): BP systolic 84–127; BP diastolic 51–76
[2022-08-25] MEDS: ARTIFICAL TEARS SOL 15 ML OS SCH ×2 (02:57→13:34)
[2022-08-25 03:59] LABS: BASOPHILS % (AUTO) 0.2 % (0.0-5.0); EOSINOPHILS % (AUTO) 1.2 % (0.0-8.0); HEMATOCRIT 25.1 % (42-54); LYMPHOCYTES % (AUTO) 9.7 % (21.0-51.0); MEAN CORPUSCULAR HEMOGLOBIN 29.5 pg (27.0-33.0); MEAN CORPUSCULAR HGB CONC 33.5 g/dL (32.0-36.0); MEAN CORPUSCULAR VOLUME 88.1 fL (79-99); MONOCYTES % (AUTO) 8.8 % (3.0-13.0); NEUTROPHILS % (AUTO) 79.6 % (40.0-77.0); PLATELET COUNT (AUTO) 419 K/uL (130-400); RED BLOOD CELL COUNT(AUTO) 2.85 MIL/uL (4.50-6.20); RED CELL DISTRIBUTION WIDTH 13.9 % (11.0-15.5); WHITE BLOOD COUNT (AUTO) 10.7 K/uL (4.8-10.8)
[2022-08-25 04:13] LABS: ALBUMIN 2.5 g/dL (3.5-5.0); CREATININE 7.8 mg/dL (0.5-1.5); POTASSIUM 4.3 mmol/L (3.5-5.1); TOTAL PROTEIN, SERUM 6.7 g/dL (6.0-8.3)
[2022-08-25] MEDS: INSULIN HUMULIN R 100 UNIT/ML 3ML SQ SCH ×4 (07:30→19:41)
[2022-08-25] MEDS: METOPROLOL TARTRATE 25 MG TAB PO SCH ×2 (08:40→19:51)
[2022-08-25] MEDS: LOSARTAN 100 MG TABLET PO SCH (08:41)
[2022-08-25] MEDS: ASPIRIN 81MG CHEW TAB PO SCH (08:41)
[2022-08-25] MEDS: FUROSEMIDE 20 MG TABLET PO SCH (08:41)
[2022-08-25] MEDS: ENOXAPARIN SODIUM 30 MG/0.3 ML SQ SCH (08:42)
[2022-08-25] MEDS: FAMOTIDINE 20MG VIAL IV SCH ×2 (08:42→19:51)
[2022-08-25] MEDS: HEPARIN 5,000 UNIT VIAL IV PRN (11:59)
[2022-08-25] MEDS ORDERED: ACETAMINOPHEN WITH CODEINE 1 TAB TAB PO ONE (14:00)
[2022-08-25] MEDS: ATORVASTATIN 40 MG TABLET PO SCH (19:51)
[2022-08-26 01:01] VITALS: BP 118/76
[2022-08-26] MEDS: ARTIFICAL TEARS SOL 15 ML OS SCH ×2 (02:31→14:00)
[2022-08-26 04:42] VITALS: BP 97/67
[2022-08-26] MEDS: INSULIN HUMULIN R 100 UNIT/ML 3ML SQ SCH ×4 (05:51→20:58)
[2022-08-26] MEDS: LOSARTAN 100 MG TABLET PO SCH (08:34)
[2022-08-26] MEDS: FAMOTIDINE 20MG VIAL IV SCH ×2 (08:34→20:57)
[2022-08-26] MEDS: METOPROLOL TARTRATE 25 MG TAB PO SCH ×2 (08:34→20:58)
[2022-08-26] MEDS: ENOXAPARIN SODIUM 30 MG/0.3 ML SQ SCH (08:35)
[2022-08-26] MEDS: ASPIRIN 81MG CHEW TAB PO SCH (08:35)
[2022-08-26] MEDS: FUROSEMIDE 20 MG TABLET PO SCH (08:35)
[2022-08-26 08:36] VITALS: BP 103/65
[2022-08-26 12:50] VITALS: BP 98/66
[2022-08-26 16:47] VITALS: BP 112/71
[2022-08-26 20:29] VITALS: BP 118/76
[2022-08-26] MEDS: ATORVASTATIN 40 MG TABLET PO SCH (20:58)
[2022-08-27] VITALS (21 sets, daily range): BP systolic 90–133; BP diastolic 48–91
[2022-08-27] MEDS: ARTIFICAL TEARS SOL 15 ML OS SCH ×2 (02:00→17:48)
[2022-08-27 04:14] LABS: ALBUMIN 2.3 g/dL (3.5-5.0); POTASSIUM 4.4 mmol/L (3.5-5.1); TOTAL PROTEIN, SERUM 6.5 g/dL (6.0-8.3)
[2022-08-27 04:16] LABS: CREATININE 8.9 mg/dL (0.5-1.5)
[2022-08-27] MEDS: INSULIN HUMULIN R 100 UNIT/ML 3ML SQ SCH ×4 (06:42→20:24)
[2022-08-27] MEDS: METOPROLOL TARTRATE 25 MG TAB PO SCH ×2 (09:00→20:25)
[2022-08-27] MEDS: LOSARTAN 100 MG TABLET PO SCH (09:00)
[2022-08-27] MEDS: FUROSEMIDE 20 MG TABLET PO SCH (09:00)
[2022-08-27] MEDS: FAMOTIDINE 20MG VIAL IV SCH ×2 (09:25→20:26)
[2022-08-27] MEDS: ASPIRIN 81MG CHEW TAB PO SCH (09:25)
[2022-08-27] MEDS: ENOXAPARIN SODIUM 30 MG/0.3 ML SQ SCH (09:25)
[2022-08-27] MEDS: ONDANSETRON 4MG INJ IV PRN (09:40)
[2022-08-27] MEDS: ACETAMINOPHEN 325 MG TAB PO PRN (09:44)
[2022-08-27] MEDS ORDERED: MIDODRINE HCL 5 MG TABLET PO SCH (15:30)
[2022-08-27] MEDS: HEPARIN 5,000 UNIT VIAL IV PRN (17:08)
[2022-08-27] MEDS: ATORVASTATIN 40 MG TABLET PO SCH (20:25)
[2022-08-28] VITALS (8 sets, daily range): BP systolic 82–137; BP diastolic 46–68
[2022-08-28] MEDS: ARTIFICAL TEARS SOL 15 ML OS SCH ×2 (01:45→14:05)
[2022-08-28] MEDS: INSULIN HUMULIN R 100 UNIT/ML 3ML SQ SCH ×4 (06:40→21:01)
[2022-08-28] MEDS: LOSARTAN 100 MG TABLET PO SCH (09:00)
[2022-08-28] MEDS: FUROSEMIDE 20 MG TABLET PO SCH (09:00)
[2022-08-28] MEDS: METOPROLOL TARTRATE 25 MG TAB PO SCH ×2 (09:00→20:20)
[2022-08-28] MEDS: MIDODRINE HCL 5 MG TABLET PO SCH (09:12)
[2022-08-28] MEDS: ASPIRIN 81MG CHEW TAB PO SCH (09:13)
[2022-08-28] MEDS: ENOXAPARIN SODIUM 30 MG/0.3 ML SQ SCH (09:13)
[2022-08-28] MEDS: FAMOTIDINE 20MG VIAL IV SCH ×2 (09:13→20:20)
[2022-08-28] MEDS: ATORVASTATIN 40 MG TABLET PO SCH (20:20)
[2022-08-29] VITALS (21 sets, daily range): BP systolic 101–132; BP diastolic 52–74
[2022-08-29] MEDS: ARTIFICAL TEARS SOL 15 ML OS SCH ×2 (02:32→14:02)
[2022-08-29 04:28] LABS: BASOPHILS % (AUTO) 0.3 % (0.0-5.0); EOSINOPHILS % (AUTO) 2.5 % (0.0-8.0); HEMATOCRIT 23.6 % (42-54); LYMPHOCYTES % (AUTO) 9.4 % (21.0-51.0); MEAN CORPUSCULAR HEMOGLOBIN 29.1 pg (27.0-33.0); MEAN CORPUSCULAR HGB CONC 33.1 g/dL (32.0-36.0); MEAN CORPUSCULAR VOLUME 88.1 fL (79-99); MONOCYTES % (AUTO) 10.4 % (3.0-13.0); NEUTROPHILS % (AUTO) 77.1 % (40.0-77.0); PLATELET COUNT (AUTO) 348 K/uL (130-400); RED BLOOD CELL COUNT(AUTO) 2.68 MIL/uL (4.50-6.20); RED CELL DISTRIBUTION WIDTH 13.5 % (11.0-15.5); WHITE BLOOD COUNT (AUTO) 8.7 K/uL (4.8-10.8)
[2022-08-29 04:42] LABS: PHOSPHORUS 5.9 mg/dL (2.5-4.9); POTASSIUM 4.3 mmol/L (3.5-5.1)
[2022-08-29] MEDS: INSULIN HUMULIN R 100 UNIT/ML 3ML SQ SCH ×4 (06:07→20:04)
[2022-08-29] MEDS: ASPIRIN 81MG CHEW TAB PO SCH (08:34)
[2022-08-29] MEDS: MIDODRINE HCL 5 MG TABLET PO SCH (08:34)
[2022-08-29] MEDS: ENOXAPARIN SODIUM 30 MG/0.3 ML SQ SCH (08:35)
[2022-08-29] MEDS: FAMOTIDINE 20MG VIAL IV SCH ×2 (08:35→20:38)
[2022-08-29] MEDS: LOSARTAN 100 MG TABLET PO SCH (09:00)
[2022-08-29] MEDS: METOPROLOL TARTRATE 25 MG TAB PO SCH ×2 (09:00→20:39)
[2022-08-29] MEDS: FUROSEMIDE 20 MG TABLET PO SCH (09:00)
[2022-08-29] MEDS: HEPARIN 5,000 UNIT VIAL IV PRN (13:45)
[2022-08-29] MEDS: ACETAMINOPHEN 325 MG TAB PO PRN ×2 (14:07→20:42)
[2022-08-29] MEDS: ATORVASTATIN 40 MG TABLET PO SCH (20:38)
[2022-08-30] MEDS: ARTIFICAL TEARS SOL 15 ML OS SCH ×2 (02:00→14:00)
[2022-08-30 03:35] LABS: HEMATOCRIT 24.9 % (42-54); MEAN CORPUSCULAR HEMOGLOBIN 28.7 pg (27.0-33.0); MEAN CORPUSCULAR HGB CONC 32.5 g/dL (32.0-36.0); MEAN CORPUSCULAR VOLUME 88.3 fL (79-99); RED BLOOD CELL COUNT(AUTO) 2.82 MIL/uL (4.50-6.20); RED CELL DISTRIBUTION WIDTH 13.3 % (11.0-15.5); WHITE BLOOD COUNT (AUTO) 7.9 K/uL (4.8-10.8)
[2022-08-30 04:04] LABS: CREATININE 6.8 mg/dL (0.5-1.5); POTASSIUM 3.9 mmol/L (3.5-5.1)
[2022-08-30 04:29] VITALS: BP 104/65
[2022-08-30] MEDS: INSULIN HUMULIN R 100 UNIT/ML 3ML SQ SCH ×4 (06:05→20:23)
[2022-08-30 07:54] VITALS: BP 97/59
[2022-08-30] MEDS: LOSARTAN 100 MG TABLET PO SCH ×2 (09:00→09:19)
[2022-08-30] MEDS: FAMOTIDINE 20MG VIAL IV SCH ×2 (09:19→20:27)
[2022-08-30] MEDS: METOPROLOL TARTRATE 25 MG TAB PO SCH ×2 (09:19→20:27)
[2022-08-30] MEDS: FUROSEMIDE 20 MG TABLET PO SCH (09:19)
[2022-08-30] MEDS: ENOXAPARIN SODIUM 30 MG/0.3 ML SQ SCH (09:20)
[2022-08-30] MEDS: ASPIRIN 81MG CHEW TAB PO SCH (09:20)
[2022-08-30 11:52] VITALS: BP 98/69
[2022-08-30 16:13] VITALS: BP 93/58
[2022-08-30 20:04] VITALS: BP 119/69
[2022-08-30] MEDS: ATORVASTATIN 40 MG TABLET PO SCH (20:27)
[2022-08-31] VITALS (22 sets, daily range): BP systolic 91–129; BP diastolic 52–78
[2022-08-31] MEDS: ARTIFICAL TEARS SOL 15 ML OS SCH ×2 (02:00→14:00)
[2022-08-31 04:08] LABS: HEMATOCRIT 23.9 % (42-54); MEAN CORPUSCULAR HEMOGLOBIN 28.6 pg (27.0-33.0); MEAN CORPUSCULAR HGB CONC 32.6 g/dL (32.0-36.0); MEAN CORPUSCULAR VOLUME 87.5 fL (79-99); RED BLOOD CELL COUNT(AUTO) 2.73 MIL/uL (4.50-6.20); RED CELL DISTRIBUTION WIDTH 13.3 % (11.0-15.5); WHITE BLOOD COUNT (AUTO) 7.3 K/uL (4.8-10.8)
[2022-08-31 04:21] LABS: POTASSIUM 4.6 mmol/L (3.5-5.1)
[2022-08-31 04:27] LABS: CREATININE 9.3 mg/dL (0.5-1.5)
[2022-08-31] MEDS: INSULIN HUMULIN R 100 UNIT/ML 3ML SQ SCH ×4 (06:09→20:19)
[2022-08-31] MEDS: METOPROLOL TARTRATE 25 MG TAB PO SCH ×2 (09:00→20:33)
[2022-08-31] MEDS: LOSARTAN 100 MG TABLET PO SCH (09:00)
[2022-08-31] MEDS: ASPIRIN 81MG CHEW TAB PO SCH (10:42)
[2022-08-31] MEDS: FUROSEMIDE 20 MG TABLET PO SCH (10:43)
[2022-08-31] MEDS: HEPARIN 5,000 UNIT VIAL IV PRN (13:12)
[2022-08-31] MEDS: ACETAMINOPHEN 325 MG TAB PO PRN ×2 (13:17→20:33)
[2022-08-31] MEDS: ENOXAPARIN SODIUM 30 MG/0.3 ML SQ SCH (13:20)
[2022-08-31] MEDS: FAMOTIDINE 20MG VIAL IV SCH ×2 (13:22→20:32)
[2022-08-31] MEDS: ATORVASTATIN 40 MG TABLET PO SCH (20:32)
[2022-09-01] VITALS (7 sets, daily range): BP systolic 85–107; BP diastolic 45–68
[2022-09-01] MEDS: ARTIFICAL TEARS SOL 15 ML OS SCH ×2 (02:00→13:30)
[2022-09-01 04:06] LABS: HEMATOCRIT 23.8 % (42-54); MEAN CORPUSCULAR HEMOGLOBIN 28.7 pg (27.0-33.0); MEAN CORPUSCULAR HGB CONC 33.2 g/dL (32.0-36.0); MEAN CORPUSCULAR VOLUME 86.5 fL (79-99); RED BLOOD CELL COUNT(AUTO) 2.75 MIL/uL (4.50-6.20); RED CELL DISTRIBUTION WIDTH 13.2 % (11.0-15.5); WHITE BLOOD COUNT (AUTO) 6.5 K/uL (4.8-10.8)
[2022-09-01 04:28] LABS: CREATININE 6.9 mg/dL (0.5-1.5); POTASSIUM 4.3 mmol/L (3.5-5.1)
[2022-09-01] MEDS: INSULIN HUMULIN R 100 UNIT/ML 3ML SQ SCH ×5 (06:48→19:53)
[2022-09-01] MEDS: LOSARTAN 100 MG TABLET PO SCH (08:43)
[2022-09-01] MEDS: FUROSEMIDE 20 MG TABLET PO SCH (08:44)
[2022-09-01] MEDS: METOPROLOL TARTRATE 25 MG TAB PO SCH ×2 (08:44→19:53)
[2022-09-01] MEDS: ASPIRIN 81MG CHEW TAB PO SCH (09:23)
[2022-09-01] MEDS: FAMOTIDINE 20MG VIAL IV SCH ×2 (09:23→19:53)
[2022-09-01] MEDS: ENOXAPARIN SODIUM 30 MG/0.3 ML SQ SCH (09:23)
[2022-09-01] MEDS: MIDODRINE HCL 5 MG TABLET PO SCH (10:38)
[2022-09-01] MEDS: ATORVASTATIN 40 MG TABLET PO SCH (19:53)
[2022-09-02] MEDS: ARTIFICAL TEARS SOL 15 ML OS SCH ×2 (00:49→13:24)
[2022-09-02 03:49] VITALS: BP 117/66
[2022-09-02 04:44] LABS: HEMATOCRIT 23.4 % (42-54); MEAN CORPUSCULAR HEMOGLOBIN 28.8 pg (27.0-33.0); MEAN CORPUSCULAR HGB CONC 33.3 g/dL (32.0-36.0); MEAN CORPUSCULAR VOLUME 86.3 fL (79-99); RED BLOOD CELL COUNT(AUTO) 2.71 MIL/uL (4.50-6.20); RED CELL DISTRIBUTION WIDTH 13.2 % (11.0-15.5); WHITE BLOOD COUNT (AUTO) 7.6 K/uL (4.8-10.8)
[2022-09-02 04:53] LABS: POTASSIUM 4.7 mmol/L (3.5-5.1)
[2022-09-02 04:55] LABS: CREATININE 9.3 mg/dL (0.5-1.5)
[2022-09-02] MEDS: INSULIN HUMULIN R 100 UNIT/ML 3ML SQ SCH ×4 (05:33→21:34)
[2022-09-02 07:33] VITALS: BP 98/60
[2022-09-02] MEDS: ASPIRIN 81MG CHEW TAB PO SCH (08:59)
[2022-09-02] MEDS: FAMOTIDINE 20MG VIAL IV SCH (08:59)
[2022-09-02] MEDS: ENOXAPARIN SODIUM 30 MG/0.3 ML SQ SCH (09:00)
[2022-09-02] MEDS: METOPROLOL TARTRATE 25 MG TAB PO SCH ×2 (09:00→21:28)
[2022-09-02] MEDS: FUROSEMIDE 20 MG TABLET PO SCH (09:00)
[2022-09-02 11:37] VITALS: BP 96/54
[2022-09-02 15:36] VITALS: BP 104/63
[2022-09-02 19:40] VITALS: BP 114/62
[2022-09-02] MEDS: ATORVASTATIN 40 MG TABLET PO SCH (21:28)
[2022-09-03] VITALS (21 sets, daily range): BP systolic 90–106; BP diastolic 51–70
[2022-09-03] MEDS ORDERED: METOPROLOL TARTRATE 1 MG/ML 5ML VIAL IV ONE (00:30)
[2022-09-03] MEDS: ARTIFICAL TEARS SOL 15 ML OS SCH ×2 (01:04→13:16)
[2022-09-03] MEDS: INSULIN HUMULIN R 100 UNIT/ML 3ML SQ SCH ×4 (06:25→20:36)
[2022-09-03] MEDS: ENOXAPARIN SODIUM 30 MG/0.3 ML SQ SCH (07:13)
[2022-09-03] MEDS: METOPROLOL TARTRATE 25 MG TAB PO SCH ×2 (07:14→21:00)
[2022-09-03] MEDS: FUROSEMIDE 20 MG TABLET PO SCH (07:14)
[2022-09-03] MEDS: FAMOTIDINE 20MG TAB PO SCH (07:14)
[2022-09-03] MEDS: ASPIRIN 81MG CHEW TAB PO SCH (07:15)
[2022-09-03] MEDS: MIDODRINE HCL 5 MG TABLET PO SCH (09:50)
[2022-09-03] MEDS: ACETAMINOPHEN 325 MG TAB PO PRN ×2 (13:34→23:49)
[2022-09-03] MEDS: HEPARIN 5,000 UNIT VIAL IV PRN (13:48)
[2022-09-03] MEDS: ATORVASTATIN 40 MG TABLET PO SCH (20:48)
[2022-09-04 00:01] VITALS: BP 112/71
[2022-09-04 03:32] VITALS: BP 115/75
[2022-09-04 03:47] LABS: MEAN CORPUSCULAR HEMOGLOBIN 28.4 pg (27.0-33.0); MEAN CORPUSCULAR HGB CONC 32.9 g/dL (32.0-36.0); MEAN CORPUSCULAR VOLUME 86.4 fL (79-99); RED BLOOD CELL COUNT(AUTO) 2.43 MIL/uL (4.50-6.20); RED CELL DISTRIBUTION WIDTH 12.9 % (11.0-15.5); WHITE BLOOD COUNT (AUTO) 6.8 K/uL (4.8-10.8)
[2022-09-04 04:01] LABS: CREATININE 7.6 mg/dL (0.5-1.5); POTASSIUM 4.3 mmol/L (3.5-5.1)
[2022-09-04] MEDS: INSULIN HUMULIN R 100 UNIT/ML 3ML SQ SCH ×4 (07:11→21:23)
[2022-09-04] MEDS: FUROSEMIDE 20 MG TABLET PO SCH (07:14)
[2022-09-04] MEDS: ENOXAPARIN SODIUM 30 MG/0.3 ML SQ SCH (07:14)
[2022-09-04] MEDS: FAMOTIDINE 20MG TAB PO SCH (07:15)
[2022-09-04] MEDS: METOPROLOL TARTRATE 25 MG TAB PO SCH ×2 (07:15→21:17)
[2022-09-04] MEDS: ASPIRIN 81MG CHEW TAB PO SCH (07:16)
[2022-09-04 08:00] VITALS: BP 98/63
[2022-09-04 08:33] LABS: HEMATOCRIT 20.5 % (42-54)
[2022-09-04] MEDS: ACETAMINOPHEN 325 MG TAB PO PRN (10:15)
[2022-09-04 11:10] VITALS: BP 91/51
[2022-09-04 14:18] LABS: HEMATOCRIT 24.8 % (42-54)
[2022-09-04 15:10] VITALS: BP 96/51
[2022-09-04 19:34] VITALS: BP 112/64
[2022-09-04] MEDS: ATORVASTATIN 40 MG TABLET PO SCH (21:17)
[2022-09-05] VITALS (7 sets, daily range): BP systolic 83–131; BP diastolic 51–75
[2022-09-05] MEDS: INSULIN HUMULIN R 100 UNIT/ML 3ML SQ SCH ×4 (06:18→21:00)
[2022-09-05] MEDS: ENOXAPARIN SODIUM 30 MG/0.3 ML SQ SCH (09:00)
[2022-09-05] MEDS: FAMOTIDINE 20MG TAB PO SCH (09:27)
[2022-09-05] MEDS: ASPIRIN 81MG CHEW TAB PO SCH (09:27)
[2022-09-05] MEDS: FUROSEMIDE 20 MG TABLET PO SCH (09:27)
[2022-09-05] MEDS: METOPROLOL TARTRATE 25 MG TAB PO SCH ×2 (09:29→21:00)
[2022-09-05] MEDS: ATORVASTATIN 40 MG TABLET PO SCH (21:00)
[2022-09-06] VITALS (20 sets, daily range): BP systolic 108–140; BP diastolic 66–79
[2022-09-06 05:41] LABS: BASOPHILS % (AUTO) 0.6 % (0.0-5.0); EOSINOPHILS % (AUTO) 4.5 % (0.0-8.0); HEMATOCRIT 23.1 % (42-54); LYMPHOCYTES % (AUTO) 11.8 % (21.0-51.0); MEAN CORPUSCULAR HEMOGLOBIN 28.5 pg (27.0-33.0); MEAN CORPUSCULAR HGB CONC 32.9 g/dL (32.0-36.0); MEAN CORPUSCULAR VOLUME 86.5 fL (79-99); MONOCYTES % (AUTO) 9.5 % (3.0-13.0); NEUTROPHILS % (AUTO) 73.3 % (40.0-77.0); PLATELET COUNT (AUTO) 306 K/uL (130-400); RED BLOOD CELL COUNT(AUTO) 2.67 MIL/uL (4.50-6.20); WHITE BLOOD COUNT (AUTO) 6.9 K/uL (4.8-10.8)
[2022-09-06 05:58] LABS: POTASSIUM 4.4 mmol/L (3.5-5.1)
[2022-09-06 06:00] LABS: CREATININE 11.2 mg/dL (0.5-1.5)
[2022-09-06] MEDS: INSULIN HUMULIN R 100 UNIT/ML 3ML SQ SCH ×4 (06:39→20:24)
[2022-09-06] MEDS: METOPROLOL TARTRATE 25 MG TAB PO SCH ×2 (09:14→20:21)
[2022-09-06] MEDS: ASPIRIN 81MG CHEW TAB PO SCH (09:14)
[2022-09-06] MEDS: FUROSEMIDE 20 MG TABLET PO SCH (09:14)
[2022-09-06] MEDS: FAMOTIDINE 20MG TAB PO SCH (09:14)
[2022-09-06] MEDS: MIDODRINE HCL 5 MG TABLET PO SCH (09:15)
[2022-09-06] MEDS: HEPARIN 5,000 UNIT VIAL IV PRN (11:30)
[2022-09-06] MEDS: ATORVASTATIN 40 MG TABLET PO SCH (20:21)
[2022-09-07 00:30] VITALS: BP 112/66
[2022-09-07 03:50] VITALS: BP 123/77
[2022-09-07 05:17] LABS: CREATININE 7.4 mg/dL (0.5-1.5); POTASSIUM 3.8 mmol/L (3.5-5.1)
[2022-09-07 05:22] LABS: HEMATOCRIT 24.5 % (42-54); MEAN CORPUSCULAR HEMOGLOBIN 27.9 pg (27.0-33.0); MEAN CORPUSCULAR HGB CONC 33.1 g/dL (32.0-36.0); MEAN CORPUSCULAR VOLUME 84.5 fL (79-99); RED BLOOD CELL COUNT(AUTO) 2.9 MIL/uL (4.50-6.20); WHITE BLOOD COUNT (AUTO) 6.2 K/uL (4.8-10.8)
[2022-09-07] MEDS: INSULIN HUMULIN R 100 UNIT/ML 3ML SQ SCH ×4 (06:10→22:06)
[2022-09-07 07:00] VITALS: BP 107/56
[2022-09-07] MEDS: FUROSEMIDE 20 MG TABLET PO SCH (08:31)
[2022-09-07] MEDS: METOPROLOL TARTRATE 25 MG TAB PO SCH ×2 (08:31→22:04)
[2022-09-07] MEDS: ASPIRIN 81MG CHEW TAB PO SCH (08:31)
[2022-09-07] MEDS: FAMOTIDINE 20MG TAB PO SCH (08:31)
[2022-09-07] MEDS: POTASSIUM CHLORIDE 10MEQ SR TAB PO PRN ×2 (08:32→11:51)
[2022-09-07 11:00] VITALS: BP 91/63
[2022-09-07 16:00] VITALS: BP 123/70
[2022-09-07 20:25] VITALS: BP 121/67
[2022-09-07] MEDS: ATORVASTATIN 40 MG TABLET PO SCH (22:04)
[2022-09-08] VITALS (20 sets, daily range): BP systolic 80–125; BP diastolic 48–78
[2022-09-08] MEDS: INSULIN HUMULIN R 100 UNIT/ML 3ML SQ SCH ×4 (06:34→20:50)
[2022-09-08] MEDS: METOPROLOL TARTRATE 25 MG TAB PO SCH ×2 (08:27→20:51)
[2022-09-08] MEDS: FUROSEMIDE 20 MG TABLET PO SCH (08:27)
[2022-09-08] MEDS: FAMOTIDINE 20MG TAB PO SCH (08:27)
[2022-09-08] MEDS: ASPIRIN 81MG CHEW TAB PO SCH (08:27)
[2022-09-08] MEDS: ONDANSETRON 4MG INJ IV PRN (09:23)
[2022-09-08] MEDS: MIDODRINE HCL 5 MG TABLET PO SCH (12:00)
[2022-09-08] MEDS: HEPARIN 5,000 UNIT VIAL IV PRN (16:43)
[2022-09-08] MEDS: ATORVASTATIN 40 MG TABLET PO SCH (20:51)
[2022-09-09 00:23] VITALS: BP 111/83
[2022-09-09 04:00] VITALS: BP 103/56
[2022-09-09] MEDS: INSULIN HUMULIN R 100 UNIT/ML 3ML SQ SCH ×4 (06:45→21:00)
[2022-09-09 07:30] VITALS: BP 91/54
[2022-09-09] MEDS: FUROSEMIDE 20 MG TABLET PO SCH (10:18)
[2022-09-09] MEDS: FAMOTIDINE 20MG TAB PO SCH (10:19)
[2022-09-09] MEDS: METOPROLOL TARTRATE 25 MG TAB PO SCH ×2 (10:19→23:46)
[2022-09-09] MEDS: ASPIRIN 81MG CHEW TAB PO SCH (10:20)
[2022-09-09 11:00] VITALS: BP 103/56
[2022-09-09 13:50] LABS: HEPATITIS B SURFACE ANTIGEN Non-Reactive (Nonreactive)
[2022-09-09 16:00] VITALS: BP 97/50
[2022-09-09 20:00] VITALS: BP 107/67
[2022-09-09] MEDS: ATORVASTATIN 40 MG TABLET PO SCH (23:46)
[2022-09-10] VITALS (7 sets, daily range): BP systolic 81–121; BP diastolic 53–70
[2022-09-10] MEDS: INSULIN HUMULIN R 100 UNIT/ML 3ML SQ SCH ×4 (06:07→21:58)
[2022-09-10] MEDS: FAMOTIDINE 20MG TAB PO SCH (08:36)
[2022-09-10] MEDS: ASPIRIN 81MG CHEW TAB PO SCH (08:37)
[2022-09-10] MEDS: FUROSEMIDE 20 MG TABLET PO SCH (08:37)
[2022-09-10] MEDS: METOPROLOL TARTRATE 25 MG TAB PO SCH ×2 (08:38→21:57)
[2022-09-10 10:23] LABS: HEMATOCRIT 21.4 % (42-54); MEAN CORPUSCULAR HEMOGLOBIN 28.6 pg (27.0-33.0); MEAN CORPUSCULAR HGB CONC 32.7 g/dL (32.0-36.0); MEAN CORPUSCULAR VOLUME 87.3 fL (79-99); RED BLOOD CELL COUNT(AUTO) 2.45 MIL/uL (4.50-6.20); RED CELL DISTRIBUTION WIDTH 12.7 % (11.0-15.5); WHITE BLOOD COUNT (AUTO) 5.6 K/uL (4.8-10.8)
[2022-09-10 10:39] LABS: POTASSIUM 4.2 mmol/L (3.5-5.1)
[2022-09-10] MEDS ORDERED: MIDODRINE HCL 5 MG TABLET PO SCH (14:00)
[2022-09-10] MEDS: ATORVASTATIN 40 MG TABLET PO SCH (21:57)
[2022-09-11] VITALS (21 sets, daily range): BP systolic 96–147; BP diastolic 54–91
[2022-09-11] MEDS: INSULIN HUMULIN R 100 UNIT/ML 3ML SQ SCH ×4 (06:27→21:00)
[2022-09-11 07:42] LABS: BASOPHILS % (AUTO) 0.7 % (0.0-5.0); EOSINOPHILS % (AUTO) 10.2 % (0.0-8.0); MEAN CORPUSCULAR HEMOGLOBIN 28.5 pg (27.0-33.0); MEAN CORPUSCULAR HGB CONC 34.6 g/dL (32.0-36.0); MEAN CORPUSCULAR VOLUME 82.3 fL (79-99); MONOCYTES % (AUTO) 7.7 % (3.0-13.0); NEUTROPHILS % (AUTO) 62.2 % (40.0-77.0); PLATELET COUNT (AUTO) 318 K/uL (130-400); RED BLOOD CELL COUNT(AUTO) 2.49 MIL/uL (4.50-6.20); RED CELL DISTRIBUTION WIDTH 12.7 % (11.0-15.5); WHITE BLOOD COUNT (AUTO) 5.5 K/uL (4.8-10.8)
[2022-09-11 07:50] LABS: HEMATOCRIT 20.5 % (42-54)
[2022-09-11 08:14] LABS: MAGNESIUM 2.2 mg/dL (1.80-2.40); PHOSPHORUS 6.5 mg/dL (2.5-4.9); POTASSIUM 4.1 mmol/L (3.5-5.1)
[2022-09-11 08:39] LABS: CREATININE 10.1 mg/dL (0.5-1.5)
[2022-09-11] MEDS: ACETAMINOPHEN 325 MG TAB PO PRN (13:23)
[2022-09-11] MEDS: FAMOTIDINE 20MG TAB PO SCH (13:23)
[2022-09-11] MEDS: ASPIRIN 81MG CHEW TAB PO SCH (13:23)
[2022-09-11] MEDS: METOPROLOL TARTRATE 25 MG TAB PO SCH ×2 (13:24→21:00)
[2022-09-11] MEDS: FUROSEMIDE 20 MG TABLET PO SCH (13:28)
[2022-09-11] MEDS ORDERED: KETOROLAC 15MG/ML VIAL (15MG/ML) ONE ×2 (18:19→18:27)
[2022-09-11] MEDS: EPOETIN ALFA-EPBX (NON-ESRD) 10,000 UNIT/ML VIAL SQ SCH (18:23)
[2022-09-11] MEDS ORDERED: KETOROLAC 15MG/ML VIAL (15MG/ML) IV ONE (18:30)
[2022-09-11] MEDS: ATORVASTATIN 40 MG TABLET PO SCH (21:00)
[2022-09-12 03:20] VITALS: BP 95/50
[2022-09-12 04:43] LABS: HEMATOCRIT 23.6 % (42-54); MEAN CORPUSCULAR HEMOGLOBIN 28.4 pg (27.0-33.0); MEAN CORPUSCULAR HGB CONC 33.9 g/dL (32.0-36.0); MEAN CORPUSCULAR VOLUME 83.7 fL (79-99); RED BLOOD CELL COUNT(AUTO) 2.82 MIL/uL (4.50-6.20); RED CELL DISTRIBUTION WIDTH 12.9 % (11.0-15.5); WHITE BLOOD COUNT (AUTO) 5.2 K/uL (4.8-10.8)
[2022-09-12 04:51] LABS: CREATININE 6.6 mg/dL (0.5-1.5); POTASSIUM 3.8 mmol/L (3.5-5.1)
[2022-09-12] MEDS: INSULIN HUMULIN R 100 UNIT/ML 3ML SQ SCH ×4 (07:00→20:42)
[2022-09-12 07:22] VITALS: BP 116/66
[2022-09-12] MEDS: METOPROLOL TARTRATE 25 MG TAB PO SCH ×2 (09:54→20:43)
[2022-09-12] MEDS: ASPIRIN 81MG CHEW TAB PO SCH (09:54)
[2022-09-12] MEDS: FUROSEMIDE 20 MG TABLET PO SCH (09:55)
[2022-09-12] MEDS: FAMOTIDINE 20MG TAB PO SCH (09:55)
[2022-09-12] MEDS: ACETAMINOPHEN 325 MG TAB PO PRN ×2 (10:36→22:58)
[2022-09-12 11:33] VITALS: BP 95/58
[2022-09-12 15:05] VITALS: BP 92/59
[2022-09-12 20:05] VITALS: BP 104/59
[2022-09-12] MEDS: ATORVASTATIN 40 MG TABLET PO SCH (20:43)
[2022-09-13] VITALS (21 sets, daily range): BP systolic 91–119; BP diastolic 49–72
[2022-09-13 05:26] LABS: HEMATOCRIT 23.3 % (42-54); MEAN CORPUSCULAR HEMOGLOBIN 28.5 pg (27.0-33.0); MEAN CORPUSCULAR HGB CONC 33.9 g/dL (32.0-36.0); MEAN CORPUSCULAR VOLUME 84.1 fL (79-99); RED BLOOD CELL COUNT(AUTO) 2.77 MIL/uL (4.50-6.20); RED CELL DISTRIBUTION WIDTH 12.8 % (11.0-15.5); WHITE BLOOD COUNT (AUTO) 6.3 K/uL (4.8-10.8)
[2022-09-13 05:56] LABS: CREATININE 8.2 mg/dL (0.5-1.5)
[2022-09-13] MEDS: INSULIN HUMULIN R 100 UNIT/ML 3ML SQ SCH ×4 (06:21→20:41)
[2022-09-13] MEDS: METOPROLOL TARTRATE 25 MG TAB PO SCH ×2 (10:59→20:41)
[2022-09-13] MEDS: FUROSEMIDE 20 MG TABLET PO SCH (10:59)
[2022-09-13] MEDS: ASPIRIN 81MG CHEW TAB PO SCH (11:00)
[2022-09-13] MEDS: FAMOTIDINE 20MG TAB PO SCH (11:00)
[2022-09-13] MEDS: ACETAMINOPHEN 325 MG TAB PO PRN ×2 (11:01→22:00)
[2022-09-13] MEDS: HEPARIN 5,000 UNIT VIAL IV PRN (13:13)
[2022-09-13] MEDS: ATORVASTATIN 40 MG TABLET PO SCH (20:41)
[2022-09-13] MEDS: EPOETIN ALFA-EPBX (NON-ESRD) 10,000 UNIT/ML VIAL SQ SCH (21:55)
[2022-09-14] MEDS ORDERED: ACETAMINOPHEN WITH CODEINE 1 TAB TAB PO ONE
[2022-09-14 04:00] VITALS: BP 108/65
[2022-09-14] MEDS: INSULIN HUMULIN R 100 UNIT/ML 3ML SQ SCH ×4 (06:37→20:25)
[2022-09-14 07:35] VITALS: BP 93/58
[2022-09-14 08:58] LABS: HEMATOCRIT 22.9 % (42-54); MEAN CORPUSCULAR HEMOGLOBIN 28.7 pg (27.0-33.0); MEAN CORPUSCULAR HGB CONC 33.6 g/dL (32.0-36.0); MEAN CORPUSCULAR VOLUME 85.4 fL (79-99); RED BLOOD CELL COUNT(AUTO) 2.68 MIL/uL (4.50-6.20); WHITE BLOOD COUNT (AUTO) 5.2 K/uL (4.8-10.8)
[2022-09-14 09:09] LABS: CREATININE 6.1 mg/dL (0.5-1.5); POTASSIUM 3.7 mmol/L (3.5-5.1)
[2022-09-14] MEDS: METOPROLOL TARTRATE 25 MG TAB PO SCH (09:38)
[2022-09-14] MEDS: FAMOTIDINE 20MG TAB PO SCH (09:38)
[2022-09-14] MEDS: FUROSEMIDE 20 MG TABLET PO SCH (09:41)
[2022-09-14 11:09] VITALS: BP 97/61
[2022-09-14 15:40] VITALS: BP 106/63
[2022-09-14] MEDS: ACETAMINOPHEN 325 MG TAB PO PRN (18:49)
[2022-09-14 20:10] VITALS: BP 143/69
[2022-09-14 23:50] VITALS: BP 104/57
[2022-09-15] VITALS (21 sets, daily range): BP systolic 99–132; BP diastolic 54–78
[2022-09-15] MEDS: INSULIN HUMULIN R 100 UNIT/ML 3ML SQ SCH ×2 (06:21→21:00)
[2022-09-15 06:24] LABS: BASOPHILS % (AUTO) 0.3 % (0.0-5.0); EOSINOPHILS % (AUTO) 11.7 % (0.0-8.0); HEMATOCRIT 24.5 % (42-54); LYMPHOCYTES % (AUTO) 22.4 % (21.0-51.0); MEAN CORPUSCULAR HGB CONC 32.2 g/dL (32.0-36.0); MEAN CORPUSCULAR VOLUME 86.9 fL (79-99); MONOCYTES % (AUTO) 8.6 % (3.0-13.0); NEUTROPHILS % (AUTO) 56.7 % (40.0-77.0); PLATELET COUNT (AUTO) 287 K/uL (130-400); RED BLOOD CELL COUNT(AUTO) 2.82 MIL/uL (4.50-6.20); WHITE BLOOD COUNT (AUTO) 5.7 K/uL (4.8-10.8)
[2022-09-15 06:29] LABS: CREATININE 7.2 mg/dL (0.5-1.5); POTASSIUM 3.6 mmol/L (3.5-5.1)
[2022-09-15] MEDS: FUROSEMIDE 20 MG TABLET PO SCH ×2 (09:00→10:09)
[2022-09-15] MEDS: FAMOTIDINE 20MG TAB PO SCH ×2 (09:00→10:10)
[2022-09-15] MEDS: HEPARIN 5,000 UNIT VIAL IJ SCH (21:20)
[2022-09-15] MEDS: ACETAMINOPHEN 325 MG TAB PO PRN (21:36)
[2022-09-15] MEDS ORDERED: ONDANSETRON 4MG INJ ONE (22:45)
[2022-09-16 04:00] VITALS: BP 129/79
[2022-09-16] MEDS ORDERED: MORPHINE 4 MG SYG IVP ONE (05:00)
[2022-09-16 05:38] LABS: HEMATOCRIT 25.3 % (42-54); MEAN CORPUSCULAR HEMOGLOBIN 28.7 pg (27.0-33.0); MEAN CORPUSCULAR HGB CONC 33.2 g/dL (32.0-36.0); MEAN CORPUSCULAR VOLUME 86.3 fL (79-99); RED BLOOD CELL COUNT(AUTO) 2.93 MIL/uL (4.50-6.20); RED CELL DISTRIBUTION WIDTH 13.2 % (11.0-15.5); WHITE BLOOD COUNT (AUTO) 6.5 K/uL (4.8-10.8)
[2022-09-16 05:50] LABS: CREATININE 4.9 mg/dL (0.5-1.5); PHOSPHORUS 3.2 mg/dL (2.5-4.9); POTASSIUM 4.1 mmol/L (3.5-5.1)
[2022-09-16] MEDS: INSULIN HUMULIN R 100 UNIT/ML 3ML SQ SCH ×4 (06:32→22:02)
[2022-09-16 08:00] VITALS: BP 116/73
[2022-09-16] MEDS: FAMOTIDINE 20MG TAB PO SCH (08:47)
[2022-09-16] MEDS: FUROSEMIDE 20 MG TABLET PO SCH (08:48)
[2022-09-16 11:56] VITALS: BP 121/72
[2022-09-16] MEDS: HEPARIN 5,000 UNIT VIAL IJ SCH (15:00)
[2022-09-16] MEDS: KETOROLAC 15MG/ML VIAL (15MG/ML) IV PRN ×2 (15:28→23:44)
[2022-09-16 16:00] VITALS: BP 94/52
[2022-09-16] MEDS: METOCLOPRAMIDE 5 MG TABLET PO SCH ×2 (16:30→17:00)
[2022-09-16 19:30] VITALS: BP 110/54
[2022-09-16 23:53] VITALS: BP 118/56
[2022-09-17 03:59] VITALS: BP 113/61
[2022-09-17 06:03] LABS: HEMATOCRIT 24.4 % (42-54); MEAN CORPUSCULAR HEMOGLOBIN 28.8 pg (27.0-33.0); MEAN CORPUSCULAR HGB CONC 32.4 g/dL (32.0-36.0); MEAN CORPUSCULAR VOLUME 89.1 fL (79-99); RED BLOOD CELL COUNT(AUTO) 2.74 MIL/uL (4.50-6.20); RED CELL DISTRIBUTION WIDTH 13.7 % (11.0-15.5); WHITE BLOOD COUNT (AUTO) 6.6 K/uL (4.8-10.8)
[2022-09-17 06:18] LABS: CREATININE 7.3 mg/dL (0.5-1.5); POTASSIUM 4.3 mmol/L (3.5-5.1)
[2022-09-17] MEDS: INSULIN HUMULIN R 100 UNIT/ML 3ML SQ SCH ×4 (06:28→20:33)
[2022-09-17] MEDS: FUROSEMIDE 20 MG TABLET PO SCH (07:18)
[2022-09-17] MEDS: FAMOTIDINE 20MG TAB PO SCH (07:18)
[2022-09-17] MEDS: METOCLOPRAMIDE 5 MG TABLET PO SCH ×3 (07:18→17:11)
[2022-09-17 08:00] VITALS: BP 95/57
[2022-09-17 12:00] VITALS: BP 110/67
[2022-09-17] MEDS: KETOROLAC 15MG/ML VIAL (15MG/ML) IV PRN (12:45)
[2022-09-17] MEDS: HEPARIN 5,000 UNIT VIAL IJ SCH (14:00)
[2022-09-17 16:00] VITALS: BP 90/64
[2022-09-17 20:00] VITALS: BP 97/53
[2022-09-18] VITALS (20 sets, daily range): BP systolic 94–157; BP diastolic 58–94
[2022-09-18 04:42] LABS: HEMATOCRIT 23.9 % (42-54); MEAN CORPUSCULAR HEMOGLOBIN 28.6 pg (27.0-33.0); MEAN CORPUSCULAR HGB CONC 32.6 g/dL (32.0-36.0); MEAN CORPUSCULAR VOLUME 87.5 fL (79-99); RED BLOOD CELL COUNT(AUTO) 2.73 MIL/uL (4.50-6.20); RED CELL DISTRIBUTION WIDTH 14.2 % (11.0-15.5); WHITE BLOOD COUNT (AUTO) 7.9 K/uL (4.8-10.8)
[2022-09-18 04:52] LABS: POTASSIUM 4.7 mmol/L (3.5-5.1)
[2022-09-18 04:56] LABS: CREATININE 9.3 mg/dL (0.5-1.5)
[2022-09-18] MEDS: INSULIN HUMULIN R 100 UNIT/ML 3ML SQ SCH ×4 (06:50→19:57)
[2022-09-18] MEDS: METOCLOPRAMIDE 5 MG TABLET PO SCH ×3 (08:47→17:07)
[2022-09-18] MEDS: FAMOTIDINE 20MG TAB PO SCH (08:47)
[2022-09-18] MEDS: KETOROLAC 15MG/ML VIAL (15MG/ML) IV PRN (09:35)
[2022-09-18] MEDS: HEPARIN 5,000 UNIT VIAL IJ SCH (12:13)
[2022-09-18] MEDS: ACETAMINOPHEN 325 MG TAB PO PRN (12:15)
[2022-09-19 04:08] VITALS: BP 112/61
[2022-09-19] MEDS: INSULIN HUMULIN R 100 UNIT/ML 3ML SQ SCH ×3 (06:39→16:30)
[2022-09-19] MEDS: METOCLOPRAMIDE 5 MG TABLET PO SCH ×3 (06:40→17:12)
[2022-09-19 08:00] VITALS: BP 102/62
[2022-09-19] MEDS: FAMOTIDINE 20MG TAB PO SCH (08:53)
[2022-09-19] MEDS: KETOROLAC 15MG/ML VIAL (15MG/ML) IV PRN (08:54)
[2022-09-19 11:52] VITALS: BP 108/62
[2022-09-19] MEDS: HEPARIN 5,000 UNIT VIAL IJ SCH (15:00)
[2022-09-19 16:00] VITALS: BP 116/66
[2022-09-19 20:01] VITALS: BP 119/69
[2022-09-19 23:25] VITALS: BP 109/60
[2022-09-20 03:16] VITALS: BP 117/76
[2022-09-20] MEDS: METOCLOPRAMIDE 5 MG TABLET PO SCH (06:32)
[2022-09-20] MEDS: KETOROLAC 15MG/ML VIAL (15MG/ML) IV PRN (06:37)
[2022-09-20] MEDS: INSULIN HUMULIN R 100 UNIT/ML 3ML SQ SCH (06:47)
[2022-09-20 08:00] VITALS: BP 111/61
[2022-09-20] MEDS: FAMOTIDINE 20MG TAB PO SCH (08:09)
[2022-09-20] MEDS ORDERED: HEPARIN 5,000 UNIT VIAL IJ SCH (09:00)
== END 2022-09-20 16:45 | disposition home or self-care (01) | DRG 233 ==
LOC: EDH 14:05 → 2AH 14:06 → EDH 14:37 → 2CV 08-14 11:21 → 2CH 08-15 07:17 → 2DH 08-17 06:08 → 3CH 09-04 23:44
PROVIDERS: ADMIT Hospitalist; ATTEND Hospitalist
PROC: 4A023N7 Measurement of Cardiac Sampling and Pressure, Left Heart, Percutaneous Approach (ICD-10-PCS; principal; 2022-08-08)
PROC: B2111ZZ Fluoroscopy of Multiple Coronary Arteries using Low Osmolar Contrast (ICD-10-PCS; 2022-08-08)
PROC: 5A1D70Z Performance of Urinary Filtration, Intermittent, Less than 6 Hours Per Day (ICD-10-PCS; 2022-08-09)
PROC: 5A1D70Z Performance of Urinary Filtration, Intermittent, Less than 6 Hours Per Day (ICD-10-PCS; 2022-08-11)
PROC: 02100Z9 Bypass Coronary Artery, One Artery from Left Internal Mammary, Open Approach (ICD-10-PCS; 2022-08-14)
PROC: 0211093 Bypass Coronary Artery, Two Arteries from Coronary Artery with Autologous Venous Tissue, Open Approach (ICD-10-PCS; 2022-08-14)
PROC: 06BQ4ZZ Excision of Left Saphenous Vein, Percutaneous Endoscopic Approach (ICD-10-PCS; 2022-08-14)
PROC: 0PH000Z Insertion of Rigid Plate Internal Fixation Device into Sternum, Open Approach (ICD-10-PCS; 2022-08-14)
PROC: 30233N1 Transfusion of Nonautologous Red Blood Cells into Peripheral Vein, Percutaneous Approach (ICD-10-PCS; 2022-08-14 12:26)
PROC: 5A1D70Z Performance of Urinary Filtration, Intermittent, Less than 6 Hours Per Day (ICD-10-PCS; 2022-08-15)
PROC: 5A1D70Z Performance of Urinary Filtration, Intermittent, Less than 6 Hours Per Day (ICD-10-PCS; 2022-08-16)
PROC: 5A1D70Z Performance of Urinary Filtration, Intermittent, Less than 6 Hours Per Day (ICD-10-PCS; 2022-08-18)
PROC: 5A1D70Z Performance of Urinary Filtration, Intermittent, Less than 6 Hours Per Day (ICD-10-PCS; 2022-08-21)
PROC: 5A1D70Z Performance of Urinary Filtration, Intermittent, Less than 6 Hours Per Day (ICD-10-PCS; 2022-08-23)
PROC: 5A1D70Z Performance of Urinary Filtration, Intermittent, Less than 6 Hours Per Day (ICD-10-PCS; 2022-08-25)
PROC: 5A1D70Z Performance of Urinary Filtration, Intermittent, Less than 6 Hours Per Day (ICD-10-PCS; 2022-08-27)
PROC: 5A1D70Z Performance of Urinary Filtration, Intermittent, Less than 6 Hours Per Day (ICD-10-PCS; 2022-08-29)
PROC: 5A1D70Z Performance of Urinary Filtration, Intermittent, Less than 6 Hours Per Day (ICD-10-PCS; 2022-08-31)
PROC: 5A1D70Z Performance of Urinary Filtration, Intermittent, Less than 6 Hours Per Day (ICD-10-PCS; 2022-09-03)
PROC: 5A1D70Z Performance of Urinary Filtration, Intermittent, Less than 6 Hours Per Day (ICD-10-PCS; 2022-09-06)
PROC: 5A1D70Z Performance of Urinary Filtration, Intermittent, Less than 6 Hours Per Day (ICD-10-PCS; 2022-09-08)
PROC: 5A1D70Z Performance of Urinary Filtration, Intermittent, Less than 6 Hours Per Day (ICD-10-PCS; 2022-09-11)
PROC: 5A1D70Z Performance of Urinary Filtration, Intermittent, Less than 6 Hours Per Day (ICD-10-PCS; 2022-09-13)
PROC: 5A1D70Z Performance of Urinary Filtration, Intermittent, Less than 6 Hours Per Day (ICD-10-PCS; 2022-09-15)
PROC: 5A1D70Z Performance of Urinary Filtration, Intermittent, Less than 6 Hours Per Day (ICD-10-PCS; 2022-09-18)
DX: I25.10 Atherosclerotic heart disease of native coronary artery without angina pectoris (principal); I21.4 Non-ST elevation (NSTEMI) myocardial infarction; N18.6 End stage renal disease; I12.0 Hypertensive chronic kidney disease with stage 5 chronic kidney disease or end stage renal disease; Z20.822 Contact with and (suspected) exposure to COVID-19; I16.0 Hypertensive urgency; G43.909 Migraine, unspecified, not intractable, without status migrainosus; E11.22 Type 2 diabetes mellitus with diabetic chronic kidney disease; I95.9 Hypotension, unspecified; E78.5 Hyperlipidemia, unspecified; D63.8 Anemia in other chronic diseases classified elsewhere; D72.829 Elevated white blood cell count, unspecified; E78.00 Pure hypercholesterolemia, unspecified; E87.70 Fluid overload, unspecified; K59.00 Constipation, unspecified; Z79.82 Long term (current) use of aspirin; Z59.00 Homelessness unspecified; Z99.2 Dependence on renal dialysis; Z79.899 Other long term (current) drug therapy; Z82.49 Family history of ischemic heart disease and other diseases of the circulatory system
CPT/HCPCS: 36415; 36430; 36600; 70450; 71045; 80048; 80053; 80061; 80076; 80305; 82435; 82803; 82947; 82948; 83036; 83605; 83735; 83880; 84100; 84132; 84295; 84484; 85014; 85018; 85025; 85027; 85347; 85384; 85610; 85730; 86704; 86706; 86850; 86900; 86901; 86923; 87340; 87635; 90935; 93005; 93306; 93356; 93458; 93880; 94002; 94003; 94010; 94150; 97039; 99156; 99157; A7048; C1769; G0378; J0282; J0360; J0610; J0690; J1644; J1650; J1815; J1885; J2250; J2270; J2405; J2440; J2704; J3010; J3475; J3490; J7030; J7040; J7120; P9016; P9045; Q9967